=== PATIENT | female | born 1960 | race Caucasian/White ===

== ENCOUNTER 2017-01-02 07:16 | Observation (INO) ==
[2017-01-02 10:46] LABS: Hematocrit 40.3 % (35.3-44.9); Hemoglobin 13.6 g/dL (11.5-15.4); Immature Granulocytes % 0.3 % (0-4); Mean Corpuscular HGB Conc 33.7 g/dL (31.6-35.5); Mean Corpuscular Volume 88.8 fL (83.0-100.0); Mean Platelet Volume 10.2 fL (9.4-12.4); Monocytes % 5.9 %; Platelet Count 235 K/mcL (140-400); Red Blood Count 4.54 M/mcL (3.82-4.97); Red Cell Distribution Width 12.1 % (11.5-14.5); Segmented Neutrophils % 68.7 %
[2017-01-02 10:47] LABS: Basophils # 0.1 K/mcL (0.0-0.2); Basophils % 0.7 %; Eosinophils # 0.2 K/mcL (0.0-0.6); Eosinophils % 2.4 %; Monocytes # 0.5 K/mcL (0.0-1.3); Neutrophils # 6.3 K/mcL (1.6-8.9)
[2017-01-02 10:51] LABS: INR 0.9
[2017-01-02 10:54] LABS: Activated Partial Thrombo Time 24.6 Seconds (26.0-36.0)
[2017-01-02] MEDS ORDERED: Naloxone 0.4 MG/ML INJ IVP PRN (10:54)
[2017-01-02 10:58] LABS: Calcium 10.4 mg/dL (8.6-10.8); Potassium 4.7 mEq/L (3.5-4.5)
--- NOTE | 2017-01-02 11:05 | History & Physical Report ---
Date of Encounter: 01/02/17 Time of Encounter: 10:30 24 Hour HP Update - Instructions Instructions: If the History and Physical is less than 30 days old and was completed prior to A.M. admission and or procedure and has NOT been updated on calendar day of procedure please complete this update prior to performing procedure. - Update Patient reports changes in Medical Condition: No Changes in examination, assessment, or condition: No Changes in Medication: No Preop tests/diagnostics Reviewed: No Surgery Remains Indicated: Yes Consent for Planned Operative Procedure(s) Verified: No - Attending Attestation Patient presents today for hydration prior to LHC scheduled for 01/03/17 due to history of CKD-3. For full H&P, please see clinic note (eCW) by Dr. Cook on . Plan for LHC due to abnormal stress test and symptoms concerning for UA. Recent TTE shows preserved LVEF. NPO after MN except medications tonight. Plan for LHC in AM. Consulted Nephrology as requested, appreciate recommendations. Patient started Mucomyst 600 mg BID; took first dose this AM--was given Rx by Dr. Guillen. Will resume home mediations, obtain baseline labs. Further recommendations to follow. The patient was discussed and reviewed with Dr. Arnold Woody who agrees with plan as stated above.
--- NOTE | 2017-01-02 11:39 | Event Note ---
Date of Encounter: 01/02/17 Time of Encounter: 11:37 Nephrology Chart Review Nephrology consulted for CKD stage III with upcoming [facility]. Pt's eGFR near her baseline of 30-40s. Agree with gentle IVF and NAC. Full consult to follow tomorrow. Thank you.
[2017-01-02] MEDS: 0.9 % Sodium Chloride 1,000 ML IVC SCH (12:13)
[2017-01-02] MEDS: Gabapentin 300 MG CAPSULE PO SCH ×2 (15:45→21:47)
[2017-01-02] MEDS ORDERED: *HR* Acetylcysteine 20% 600 MG/3 ML ORAL SYRINGE PO SCH (21:00)
[2017-01-02] MEDS: ACETYLCYSTEINE 600 MG PO SCH (21:46)
[2017-01-03] MEDS: 0.9 % Sodium Chloride 1,000 ML IVC SCH ×2 (02:52→17:13)
[2017-01-03 04:50] LABS: Calcium 9.2 mg/dL (8.6-10.8); Potassium 4.2 mEq/L (3.5-4.5)
[2017-01-03] MEDS: FLUoxetine HCl 10 MG CAPSULE PO SCH (08:04)
[2017-01-03] MEDS: Gabapentin 300 MG CAPSULE PO SCH ×3 (08:04→21:34)
[2017-01-03] MEDS: Aspirin 81 MG TAB.CHEW PO SCH (08:05)
[2017-01-03] MEDS: ACETYLCYSTEINE 600 MG PO SCH ×2 (08:05→21:35)
--- NOTE | 2017-01-03 09:59 | Nephrology Consult Note ---
Date of Encounter: 01/03/17 Time of Encounter: 09:59 Assessment and Plan (1) CKD (chronic kidney disease) stage 3, GFR 30-59 ml/min Current Visit: Yes Status: Acute LHC planned for today Renal protective strategies in place-Mucomyst given and IV fluids running Will monitor renal function closely (2) Hypertension Current Visit: Yes Status: Acute per primary team Qualifiers: Hypertension type: unspecified Qualified Code(s): I10 - Essential (primary ) hypertension History of Present Illness - Reason for Consult Consult date: 01/03/17 - Chief Complaint abnormal stress test, LHC, CKD stage 3 - History of Present Illness Ms Mujica is a 56 year old female with a PMH of HTN, diabetes, CDK stage 3 who was admitted for a left heart cath. Patient follows with Dr Guillen for her CKD stage 3. Nephrology has been consulted to help with preserving kidney function during heart cath. IV fluids and acetylcysteine has been ordered. Heart cath is scheduled for today. Past Med Surg Social Fam HX - Past Medical History Medical history: diabetes, hyperlipidemia, hypertension, pulmonary embolus, renal disease Psychiatric history: anxiety - Social History Smoking Status: Never smoker Smokeless Tobacco Status: No Alcohol use: occasionally Drug use: none - Family History Mother Hx Family Cardiac Disorders: No Hx Family Respiratory Disorders: No Hx Family Cancer: No Hx Family GI Disorders: No Hx Family Genitourinary Disorders: No Hx Family Endocrine Disorder: Yes (thyroid) Hx Family Musculoskeletal Disorders: No Hx Family Neuromuscular Disorders: No Hx Family Neurologic Disorders: No Hx Family HEENT Disorders: No Hx Family Autoimmune Disorders: No Hx Family Reproductive Disorders: No Hx Family Psychosocial Disorders: No Hx Family Medical Disorders: No Father Living Status: Still Living Hx Family Cardiac Disorders: Yes (HLD) Hx Family Respiratory Disorders: No Hx Family Cancer: No Hx Family GI Disorders: No Hx Family Genitourinary Disorders: No Hx Family Endocrine Disorder: Yes (DM 2) Hx Family Musculoskeletal Disorders: No Hx Family Neuromuscular Disorders: No Hx Family Neurologic Disorders: No Hx Family HEENT Disorders: No Hx Family Autoimmune Disorders: No Hx Family Reproductive Disorders: No Hx Family Psychosocial Disorders: No Hx Family Medical Disorders: No Medications and Allergies Aspirin 325 mg PO DAILY 01/02/17 [History] Calcitriol [Rocaltrol] 0.25 mcg PO DAILY 01/02/17 [History] Cholecalciferol (D-3) [Vitamin D] 5,000 unit PO DAILY 01/02/17 [History] Gabapentin [Neurontin] 300 mg PO TID 01/02/17 [History] Insulin ASPART [NovoLOG] 0 unit SQ AD 01/02/17 [History] Isosorbide MONOnitrate (24 HR) [Imdur] 60 mg PO DAILY 01/02/17 [History] Levothyroxine Sodium [Tirosint] 75 mcg PO QAM 01/02/17 [History] Lisinopril [Zestril] 5 mg PO DAILY 01/02/17 [History] Simvastatin [Zocor] 40 mg PO HS 01/02/17 [History] 3 Allergy/AdvReac Type Severity Reaction Status Date / Time Penicillins Allergy Hives Verified 12/17/15 05:57 bacitracin AdvReac See Verified 12/17/15 05:57 Comments cephalexin [From Keflex] AdvReac Itching Verified 12/17/15 05:57 Review of Systems All Systems: reviewed and no additional remarkable complaints except as stated Constitutional: no fatigue, no lethargy Cardiovascular: no chest pain, no dyspnea Gastrointestinal: no abdominal pain Neurological: no behavioral changes Exam - Vital Signs Vital signs: Initial Vital Signs Temp Pulse Resp BP Pulse Ox 97.6 F 83 16 167/90 97 01/02/17 09:56 01/02/17 09:56 01/02/17 09:56 01/02/17 09:56 01/02/17 09:56 Vital Signs - Last 8 Hours Temp Pulse Resp BP Pulse Ox 01/03/17 08:10 96 01/03/17 07:32 97.9 F 68 16 137/82 96 01/03/17 04:07 98.4 F 72 14 124/75 94 Intake and Output 01/02/17 01/03/17 01/03/17 23:59 07:59 15:59 Intake Total 300 / 300 1000 / 1000 Output Total 900 / 900 Balance 300 / 300 100 / 100 Intake: IV Fluids 1000 / 1000 0.9 % Sodium Chloride 1, 1000 / 1000 000 ML @ 75 mls/hr IVC . [id number] JASPAL Rx#: [id number] Oral 300 / 300 Output: Urine 900 / 900 Other: Meal Dinner Percent of Meal Consumed 80% Weight 94.224 kg Blood Glucose* 122 Patient Weight 01/03/17 23:59 Weight 94.224 kg - General Appearance General appearance: well-developed, well-nourished EENT: ATNC, mucous membranes moist, hearing intact, vision intact Neck: supple Respiratory: clear Cardiology: no edema, normal S1, normal S2 Gastrointestinal: no tenderness, no guarding Integumentary: warm and dry Psychiatric: mood/affect appropriate Results - Lab Results 01/02/17 10:36 01/03/17 03:55 Most recent lab results Calcium 9.2 mg/dL (8.6-10.8) 01/03/17 03:55 Consult Discharge Plan - Plan Referrals: Ame Moreno [employer] TRA[employer] [Primary Care Provider] -
[2017-01-03] MEDS ORDERED: 0.9 % Sodium Chloride 2,000 ML ONE (14:06)
[2017-01-03] MEDS ORDERED: *HR* Midazolam HCl 2 MG/2 ML VIAL ONE (14:06)
[2017-01-03] MEDS ORDERED: Nitroglycerin 1,000 MCG/10 ML VIAL IV ONE (14:07)
[2017-01-03] MEDS ORDERED: *HR* Heparin 10,000 UNIT/10 ML VIAL ONE (14:07)
[2017-01-03] MEDS ORDERED: Heparin 1,000 UNITS/500 mL NS 500 ML ONE (14:07)
--- NOTE | 2017-01-03 14:38 | Pre-Sedation Evaluation ---
Pre-sedation evaluation - Pre-sedation checklist Date of procedure: 01/03/17 Procedure: [facility] Recent Vitals: Last Vital Signs Temp 97.3 F L 01/03/17 11:20 Pulse 67 01/03/17 11:20 Resp 16 01/03/17 11:20 BP 149/77 01/03/17 11:20 Pulse Ox 97 01/03/17 11:20 H&P (including ROS) documented in medical record: Yes Previous reaction to sedatives/anesthetics: Yes; explain in comment Dietary Status: NPO after Midnight Airway Assessment: Patient can open mouth completely, TMJ function normal Dentition: No loose teeth or bridges Possible difficult airway: No ASA Classification *see protocol: CLASS III-Severe systemic disease Plan of Care: Pt appropriate candidate for procedure/moderate/conscious sedation , Risks/benefits of procedure/sedation discussed w/ patient/family, If not NPO; Risk of intake outweiged by necessity to perform procedure
--- NOTE | 2017-01-03 15:22 | Event Note ---
Date of Encounter: 01/03/17 Time of Encounter: 15:20 - Cardiology Event Note Per discussion with Dr. Cook, CT Surgery consult placed for severe 3 vessel CAD , had echo 12/28/16-- mild MR, EF 60%. Dr. Duarte notified.
[2017-01-03] MEDS ORDERED: 0.9 % Sodium Chloride 1,000 ML IVC SCH (15:30)
--- NOTE | 2017-01-03 15:37 | Invasive Diagnostic Lab Proc ---
Name: Tonia Mujica Date of Study: 01/03/2017 Date: 1960 Ht: 62.9in Medical Record#: [id number] Age: 56 Wt: 207.68lb Gender: Female BSA: 1.96 Order #: [id number] BMI: 36.89 Physicians Procedure Physician: Hugh Cook DO Referring MD: Referring MD: Staff Name Position Time In Anh King RN Monitor 02:22 PM June Silveira RN Packaging Materials Inspector 02:22 PM Pallavi Kay RT (R) 02:22 PM Suzette Paris RT Scrub 02:23 PM Jarrett Chowdary RT (R) 02:23 PM Indications Indication Abnormal Test - Stress Procedures Performed Procedure L HRT ARTERY/VENTRICLE ANGIO Pre-Procedure Checklist Informed consent is complete signed and on chart. H&P is on chart. ID band is on and ID verified with patient. Patient NPO for procedure The procedure was described for the patient and questions were answered. Blood Pressure: 137/82 ECG is on chart. Plan of Care Patient will tolerate the procedure without complications. Adequate level of comfort will be maintained. Hemodynamics will remain stable Patient will recover from procedure without complications. Respiratory function will be maintained. Cardiac rhythm will remain stable. Patient temperature will be maintained. Patient and/or family have verbalized understanding of the procedure. Patient Education Chief Complaint/Reason for Test: Cardiac Cath Developmental Category: Adult (18-64 years) Developmentally Appropriate for Age: Yes Learning Barriers: None Education Needs: Procedure Education Method: Verbal Information Taught: Cardiac Cath Educational Evaluation: Able to repeat information Intravenous Access Time IV Size Location DC'd Fluid/Drip Rate Units RN 02:20 PM 20g 1 1/4" Patent On Arrival Lt Antecubital 0.9NaCl 25 ml/hr June Silveira RN Allergies bacitracin PCN (penicillin) BASATEST Penicillins cephalexin Vital Signs Time BP (mmHg) HR (bpm) O2 Sat. RR (bpm) LOC 02:21 PM 137 / 82 68 96 % 16 02:37 PM / % 5 = Fully awake and oriented or at pre-proc level 02:37 PM / % 4 = Oriented but drowsy 02:52 PM / % 4 = Oriented but drowsy 02:40 PM 156 / 76 74 100 % 15 02:45 PM 141 / 74 72 100 % 18 02:50 PM 149 / 73 70 100 % 16 02:55 PM 147 / 80 69 100 % 16 03:00 PM 155 / 73 68 100 % 16 03:05 PM 147 / 76 74 100 % 17 03:10 PM 156 / 81 77 100 % 26 Procedural Medications Time Medication Dose Units Method Given By 02:37 PM Oxygen 2 L/min nasal cannula June Silveira RN 02:42 PM Versed 2 mg Intravenous June Silveira RN 02:56 PM Lidocaine 2% 10 ml Subcutaneous Hugh Cook DO ASA Classification: CLASS III- Severe systemic disease (i.e. prior AMI, diabetes with vascular complications, morbid obesity) Duane Score Preprocedure Postprocedure Activity 2- Moves 4 extremities sustained head lift Activity 2- Moves 4 extremities sustained head lift Circulation 2- SBP +/= 20 points of pre-anesthetic level Circulation 2- SBP +/= 20 points of pre-anesthetic level Consciousness 2- Awake and alert oriented x 3 Consciousness 2- Awake and alert oriented x 3 O2 Saturation 2- Able to maintain O2 satruation of 92% on room air O2 Saturation 2- Able to maintain O2 satruation of 92% on room air Respiratory 2- Able to deep breathe and cough well Respiratory 2- Able to deep breathe and cough well Total Score 10 Total Score 10 Contrast Agent: Isovue Diagnostic Contrast: 75 ml Total Contrast: 75 ml Fluoro Dose: 342 mGy Procedure Log Time Note Enter By 02:10 PM CathStat 02:22 PM Pt arrived to laborer carpentry dock 2 at 14:22 [facility] 02:22 PM Anh King RN Position: Monitor Time in: 14:22 [email or web address] 02:22 PM June Silveira RN Position: Packaging Materials Inspector Time in: 14:22 [email or web address] 02:22 PM Pallavi Kay RT (R) Position: Time in: 14:22 lparsley 02:23 PM Suzette Paris RT Position: Scrub Time in: 14:23 [email or web address] 02:23 PM Jarrett Chowdary RT (R) Position: Time in: 14:23 lparsley 02:34 PM Physician arrived 14:34 [email or web address] 02:34 PM Nigel and shayla [facility] 02:34 PM Sign in performed according to hospital policy. [facility] 02:34 PM Procedure start 14:34 [facility] 02:34 PM Patient charges- Angio tray pack, Navilyst 3mm J, Pulse Oximetry and ACIST tubing and transducer [facility] 02:34 PM Case Delayed No [facility] :37 PM Time: 14:37 Oxygen on at 2 L/min per nasal cannula by June Silveira RN [facility] 02:37 PM Time: 14:37 Patient comfortable and pain free: Yes [facility] :37 PM Time: 14:37LOC: 5 = Fully awake and oriented or at pre-proc level [facility] 02:37 PM Clinical Presentation: Unstable angina [facility] 02:39 PM Recorded ECG: HR=87 Condition=Condition 1 02:39 PM Vitals capture started with the following parameters, Patient=Adult, Interval=5 min, Initial Vineirqe=424 mmHg, Deflation Rate=5 mmHg, Cuff placed on Right Arm 02:40 PM HR=74 bpm, PLIA=829/76 mmhg, VwN4=069.0 %, Resp=15 B/min, Comment=NSR 02:41 PM insulin pump removed and placed at station [facility] 02:42 PM Time: 14:42 Versed 2 mg Intravenous Given by June Silveira RN [facility] 02:43 PM ASA Class CLASS III- Severe systemic disease (i.e. prior AMI, diabetes with vascular complications, morbid obesity) [facility] 02:45 PM HR=72 bpm, SRRF=209/74 mmhg, HnX0=709.0 %, Resp=18 B/min, Comment=NSR 02:48 PM Pressure channel 2 zeroed. 02:50 PM HR=70 bpm, DJVB=842/73 mmhg, SpH1=611.0 %, Resp=16 B/min, Comment=NSR 02:52 PM Time: 14:37LOC: 4 = Oriented but drowsy [facility] 02:52 PM Time: 14:37 Patient comfortable and pain free: Yes [facility] 02:55 PM HR=69 bpm, JBPE=728/80 mmhg, NvH2=139.0 %, Resp=16 B/min, Comment=NSR 02:55 PM Time out performed according to hospital policy [facility] 02:56 PM Time: 14:56 10 ml Lidocaine 2% to right groin Subcutaneous Given by Hugh Cook DO [facility] 02:59 PM Micro-Introducer Kit utilized for sheath placement lparsley 02:59 PM Access obtained by percutaneous puncture. 6Fr 10cm Terumo [place] sheath placed in right Femoral artery. [id number] lparsley 03:00 PM HR=68 bpm, JCYN=184/73 mmhg, ZvJ8=140.0 %, Resp=16 B/min, Comment=NSR 03:01 PM 6Fr FR 4 catheter inserted over the wire DN lparsley 03:01 PM 0.035 145cm Navilyst 3mmJ wire [id number] lparsley 03:01 PM Catheter selectively placed in left ventricle lparsley 03:01 PM Bolus angiogram of left Ventricle complete: hand injected lparsley 03:01 PM Recorded Pressure: LV, HR=70, Condition=Condition 1 (Left Ventricle) LV 151/4/11 03:02 PM Recorded Pressure: LV, Ao, HR=72, Condition=Condition 1 (Left Ventricle) LV 153/6/12, (Aorta) Ao 145/66/99 03:03 PM RCA angiography performed in multiple views. lparsley 03:03 PM Recorded Pressure: Ao, HR=74, Condition=Condition 1 (Aorta) Ao 146/66/98 03:04 PM Lesion found in Mid RCA. Pre Stenosis: 80 Pre TATIANA Flow: 3: Complete and Brisk Flow/Perfusion lparsley 03:05 PM HR=74 bpm, ARKL=972/76 mmhg, TgW2=499.0 %, Resp=17 B/min, Comment=NSR 03:05 PM Lesion found in Distal RCA. Pre Stenosis: 90 Pre TATIANA Flow: 3: Complete and Brisk Flow/Perfusion lparsley 03:05 PM Catheter removed lparsley 03:05 PM 5Fr FL 4 catheter inserted over the wire [facility] lparsley 03:05 PM LCA angiography performed in multiple views. lparsley 03:05 PM Recorded Pressure: Ao, HR=76, Condition=Condition 1 (Aorta) Ao 145/62/95 03:06 PM Coronary Dominance: right lparsley 03:07 PM Bolus angiogram of right Femoral complete: hand injected lparsley 03:07 PM Time: 14:52LOC: 4 = Oriented but drowsy lparsley 03:08 PM Catheter removed lparsley 03:08 PM Procedure completed at 15:08 lparsley 03:09 PM Sign out completed: Radiation Dose 341.87 mGy Fluoro Time: 2.5 Isovue 370 - 200ml contrast 75 ml given by Hugh Cook DO. Complications: NoneCardiac Rehab Consult needed: YesConfirmed administered medications: Yes lparsley 03:09 PM Isovue 370 - 200ml,1 Bottle(s) used. lparsley 03:09 PM Arterial sheath pulled, Angio-seal Evolution closure device used and was Successful [id number] S/N. lparsley 03:09 PM Post ECG NSR lparsley 03:10 PM HR=77 bpm, LUBN=363/81 mmhg, GkI9=202.0 %, Resp=26 B/min, Comment=NSR 03:10 PM Post Blood Pressure 145/62 lparsley 03:16 PM 15:16 Post Pulses Bilateral DP & PT 2+ lparsley 03:16 PM Information taught Cardiac Cath and Angioseal lparsley 03:17 PM Education needs Procedure, Plan of Care, and Safe & Effective Use of Medications lparsley 03:17 PM Learning barriers :None lparsley 03:17 PM Education Methods Verbal lparsley 03:17 PM Education evaluation Able to repeat information lparsley 03:17 PM Site status No bleeding/hematoma - Rt Groin as reported by Suzette Paris RT at 15:17 lparsley 03:17 PM Opsite applied lparsley 03:18 PM Plavix, Effient or Brilinta given No lparsley 03:18 PM Delay to floor No lparsley 03:18 PM Patient out of room: 15:18 lparsley 03:18 PM Family placed in consult room. lparsley 03:18 PM Complications: None lparsley 03:18 PM Fluoro Time: 2.5 lparsley 03:18 PM Isovue 370 - 200ml contrast 75 ml given by Hugh Cook DO. lparsley 03:18 PM Radiation Dose 341.87 mGy lparsley 03:19 PM Lesion found in Mid LAD. Pre Stenosis: 80 Pre TATIANA Flow: 3: Complete and Brisk Flow/Perfusion lparsley 03:19 PM Lesion found in 1st Diagonal. Pre Stenosis: 80 Pre TATIANA Flow: 3: Complete and Brisk Flow/Perfusion lparsley 03:19 PM Lesion found in Proximal Circumflex. Pre Stenosis: 80 Pre TATIANA Flow: 3: Complete and Brisk Flow/Perfusion lparsley 03:20 PM Lesion found in 1st Marginal. Pre Stenosis: 90 Pre TATIANA Flow: 3: Complete and Brisk Flow/Perfusion lparsley 03:21 PM Right Coronary, Right Posterior Descending Arteries with Right Posterolateral and Acute Marginal branches with 90 % stenosis. lparsley 03:21 PM Mid/Distal Left Anterior Descending Coronary Artery and diagonal branches with 90% stenosis. lparsley 03:21 PM Circumflex, Obtuse Marginal, Left Posterior Descending, and Left Posterolateral Coronary Arteries with 90 % stenosis. lparsley 03:[address] Duarte and he returned call and made aware of consult [facility] Complications Complication None Hemodynamics Pressures Site Systolic/A Wave Diastolic/V Wave Mean LV 151 4 11 LV 153 6 12 AO 145 66 99 AO 146 66 98 AO 145 62 95 Post Procedure Information Blood Pressure: 145/62 mmHg Rhythm: NSR Post procedural instructions were given Closure Device Time Device Success/Fail 01/03/2017 3:22:00 PM angioseal Successful Site Checks Time Location Status Staff Sheath In? Note 03:17 PM Rt Groin No bleeding/hematoma Suzette Paris RT Pulses Time Site Pre-Procedure Post-Procedure Note 01/03/2017 2:21:00 PM Bilateral radial 2+ 01/03/2017 2:21:00 PM Bilateral DP & PT 1+ 3:16:00 PM Bilateral DP & PT 2+ Updated by Anh King RN on 01/03/2017 3:29:03 PM electronically signed on 01/03/2017 3:32:07 PM with status of Final
--- NOTE | 2017-01-03 16:21 | Cardiothoracic Consult Note ---
Date of Encounter: 01/03/17 Time of Encounter: 16:17 Assessment and Plan (1) Hypertension Current Visit: Yes Status: Acute The assessment and plan as outlined above was discussed with the patient and/or family members who expressed understanding and agreement. All questions were answered. The patient has small, diffusely diseased vessels with triple-vessel disease. They do appear bypassable. Coronary artery bypass grafting was discussed with the patient. She wishes to consider. We will make sure that her renal function is stable. I will check a carotid duplex to make sure that her carotid arteries are not blocked. Risks of open heart surgery include , infection, stroke, bleeding, myocardial infarction, clots around the heart, renal or respiratory failure, acute or chronic graft closure, phrenic nerve injury and sternal dehiscence. She will consider and let us know her decision. Qualifiers: Hypertension type: unspecified Qualified Code(s): I10 - Essential (primary ) hypertension - History of Present Illness History of present illness: Ms. Mujica is a 56 year old female History of present illness. The patient is a 56-year-old female who presented with angina with exertion. No history of myocardial infarction or shortness of breath. She did have a positive stress test. Echocardiogram revealed mild mitral regurgitation, but no other significant valvular disease. Cardiac catheterization done today revealed triple vessel disease. The vessels are small , but the posterior descending branch of the right, obtuse marginal branch of the circumflex and LAD appear bypassable. Past medical history is notable for diabetes since age 12. She does have an insulin pump, but states that her sugars tend to bounce around. She also has hypertension and hypercholesterolemia. She does have chronic kidney disease and is followed by the renal service for this. She did have some eye problems and has had laser surgery. 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 Approximately 10 years ago she had a right leg deep venous thrombosis that resulted in a pulmonary embolism which was felt to be secondary to control pills. Her only blood thinner present is aspirin. She is also undergone partial thyroidectomy. Family history is positive for coronary artery disease. Social history. She lives with her parents and works at [employer]. Does not smoke. Occasionally drinks alcohol. Review of systems is negative for saphenous vein varicosities or strippings. No history of stroke or TIA. Past Med Surg Social Fam HX - Past Medical History Medical history: diabetes, hyperlipidemia, hypertension, pulmonary embolus, renal disease Psychiatric history: anxiety - Social History Smoking Status: Never smoker Smokeless Tobacco Status: No Alcohol use: occasionally Drug use: none - Family History Mother Hx Family Cardiac Disorders: No Hx Family Respiratory Disorders: No Hx Family Cancer: No Hx Family GI Disorders: No Hx Family Genitourinary Disorders: No Hx Family Endocrine Disorder: Yes (thyroid) Hx Family Musculoskeletal Disorders: No Hx Family Neuromuscular Disorders: No Hx Family Neurologic Disorders: No Hx Family HEENT Disorders: No Hx Family Autoimmune Disorders: No Hx Family Reproductive Disorders: No Hx Family Psychosocial Disorders: No Hx Family Medical Disorders: No Father Living Status: Still Living Hx Family Cardiac Disorders: Yes (HLD) Hx Family Respiratory Disorders: No Hx Family Cancer: No Hx Family GI Disorders: No Hx Family Genitourinary Disorders: No Hx Family Endocrine Disorder: Yes (DM 2) Hx Family Musculoskeletal Disorders: No Hx Family Neuromuscular Disorders: No Hx Family Neurologic Disorders: No Hx Family HEENT Disorders: No Hx Family Autoimmune Disorders: No Hx Family Reproductive Disorders: No Hx Family Psychosocial Disorders: No Hx Family Medical Disorders: No Medications and Allergies Aspirin 325 mg PO DAILY 01/02/17 [History] Calcitriol [Rocaltrol] 0.25 mcg PO DAILY 01/02/17 [History] Cholecalciferol (D-3) [Vitamin D] 5,000 unit PO DAILY 01/02/17 [History] Gabapentin [Neurontin] 300 mg PO TID 01/02/17 [History] Insulin ASPART [NovoLOG] 0 unit SQ AD 01/02/17 [History] Isosorbide MONOnitrate (24 HR) [Imdur] 60 mg PO DAILY 01/02/17 [History] Levothyroxine Sodium [Tirosint] 75 mcg PO QAM 01/02/17 [History] Lisinopril [Zestril] 5 mg PO DAILY 01/02/17 [History] Simvastatin [Zocor] 40 mg PO HS 01/02/17 [History] 3 Allergy/AdvReac Type Severity Reaction Status Date / Time Penicillins Allergy Hives Verified 12/17/15 05:57 bacitracin AdvReac See Verified 12/17/15 05:57 Comments cephalexin [From Keflex] AdvReac Itching Verified 12/17/15 05:57 All Systems Review: A 10-system review of systems was performed and is negative for pertinent findings except as documented above in the HPI. Physical Examination Vital Signs, Last 4 Hours Temp Pulse Resp BP Pulse Ox 01/03/17 15:42 97.6 F 67 14 144/81 96 She has decreased vision in her left eye. No oral lesions. Neck is supple. Trachea in the midline. She is status post partial thyroidectomy. No carotid bruits. Lungs are clear to percussion and auscultation. Heart is in a regular rate and rhythm. No murmurs, gallops or rubs. Abdomen is benign. No tenderness, rebound or guarding. Extremities without edema. 1+ pulses. No saphenous vein varicosities or strippings. Cranial nerves, motor and sensory intact. Results 01/02/17 10:36 01/03/17 03:55 Lab Results, Last 24 hours 01/03/17 03:55 Sodium 138 Potassium 4.2 Chloride 106 Carbon Dioxide 24 BUN 26 H Creatinine 1.24 H Glucose 165 H Calcium 9.2 Consult Discharge Plan - Plan Referrals: Ame Moreno CNP [Primary Care Provider] -
[2017-01-04 02:04] LABS: Hematocrit 41.7 % (35.3-44.9); Hemoglobin 13.5 g/dL (11.5-15.4); Immature Granulocytes % 0.3 % (0-4); Lymphocytes % 23.1 %; Mean Corpuscular HGB Conc 32.4 g/dL (31.6-35.5); Mean Corpuscular Hemoglobin 29.2 pg (28.0-33.3); Mean Corpuscular Volume 90.1 fL (83.0-100.0); Mean Platelet Volume 10.4 fL (9.4-12.4); Platelet Count 242 K/mcL (140-400); Red Blood Count 4.63 M/mcL (3.82-4.97); Red Cell Distribution Width 12.3 % (11.5-14.5); Segmented Neutrophils % 67.9 %
[2017-01-04 02:05] LABS: Basophils # 0.1 K/mcL (0.0-0.2); Basophils % 0.5 %; Eosinophils # 0.2 K/mcL (0.0-0.6); Eosinophils % 2.3 %; Lymphocytes # 2.2 K/mcL (0.6-4.6); Monocytes # 0.6 K/mcL (0.0-1.3); Monocytes % 5.9 %; Neutrophils # 6.5 K/mcL (1.6-8.9)
[2017-01-04 02:22] LABS: Calcium 9.4 mg/dL (8.6-10.8)
[2017-01-04] MEDS: 0.9 % Sodium Chloride 1,000 ML IVC SCH (04:28)
--- NOTE | 2017-01-04 09:06 | Cardiothoracic Progress Note ---
Date of Encounter: 01/04/17 Time of Encounter: 09:01 - Assessment and plan (1) Hypertension Current Visit: Yes Status: Acute The patient's renal function is improved. Carotid duplex study is pending. She is still unsure about surgery. All her questions were answered. She states that she probably wants to go home and come back for surgery. This is okay from my standpoint. She has triple vessel disease with recently preserved left ventricular function and only gets angina with exertion. The patient has several social issues. She states that her mother's recently had back surgery and that her father is quite ill. In addition, her sister is going out of town for a vacation. I did discuss the fact that she would have a slight risk of heart attack or sudden if she goes home. If she does go home, we can schedule the open heart surgery prior to her leaving for a date of her choosing. Otherwise, she has the phone number of our office and she can call us when she is ready or can make an appointment in the office to discuss further. Qualifiers: Hypertension type: unspecified Qualified Code(s): I10 - Essential (primary ) hypertension - Subjective Interval history: The patient has had no chest pain and no angina. She has no complaints. Vital Signs, Last 4 Hours Temp Pulse Resp BP Pulse Ox 01/04/17 07:50 97.4 F L 60 16 126/54 98 Weight 01/02/17 01/03/17 01/04/17 23:59 23:59 23:59 Weight 95.708 kg 94.224 kg 95.479 kg Lungs are clear to percussion and auscultation. Heart is in a normal sinus rhythm. - Labs 01/04/17 01:20 01/04/17 01:20 Lab Results, Last 24 hours 01/04/17 01/04/17 01/04/17 01:20 01:20 01:20 WBC 9.5 Hgb 13.5 Hct 41.7 Plt Count 242 Sodium 138 Potassium 4.0 Chloride 106 Carbon Dioxide 27 BUN 19 Creatinine 1.18 H Glucose 168 H Calcium 9.4 B-Natriuretic Peptide 108 H Consult Discharge Plan - Plan Referrals: Ame Moreno CNP [Primary Care Provider] -
[2017-01-04] MEDS: ACETYLCYSTEINE 600 MG PO SCH (09:12)
[2017-01-04] MEDS: Aspirin 81 MG TAB.CHEW PO SCH (09:12)
[2017-01-04] MEDS: FLUoxetine HCl 10 MG CAPSULE PO SCH (09:12)
[2017-01-04] MEDS: Gabapentin 300 MG CAPSULE PO SCH (09:12)
--- NOTE | 2017-01-04 10:39 | Nephrology Progress Note ---
Date of Encounter: 01/04/17 Time of Encounter: 10:37 - Assessment and Plan (1) CKD (chronic kidney disease) stage 3, GFR 30-59 ml/min Status: Chronic Doing very well from a renal perspective in CKD stage III and slightly improved d/t the gentle IVF. Would check BMP about 72hr after contrast exposure. Follow up with her primary plate cleaner, Dr. Nunez. Found to have 3v coronary disease and now seeing Cardiothoracic surgery. Given the well controlled CKD stage III, it would be reasonable from a nephrology perspective for her to undergo CABG if indicated. Will be available if needed. Thank you. (2) Hypertension Status: Chronic Qualifiers: Hypertension type: essential hypertension Qualified Code(s): I10 - Essential (primary) hypertension Subjective Principal diagnosis: CKD s/p [facility] Interval history: Pt was s/e and did not affirm N/V/D or uremic symptoms. She and her mother asked me my opinion about CABG and it's impact on CKD: I reported that since her eGFR is actually quite good at this time, that it's prudent that she proceed soon with a CABG here at [place]. She said she plans to delay surgery until her Mom returns from a pre-planned vacation. Objective - Vital Signs Vital signs: Vital Signs Temp Pulse Resp BP Pulse Ox 01/04/17 07:50 97.4 F L 60 16 126/54 98 01/04/17 03:55 97.6 F 58 14 104/64 98 01/03/17 23:30 97.6 F 70 16 109/69 97 01/03/17 17:40 72 17 150/93 97 01/03/17 16:40 75 18 159/75 98 01/03/17 16:10 68 17 151/82 96 01/03/17 15:42 97.6 F 67 14 144/81 96 01/03/17 11:20 97.3 F L 67 16 149/77 97 Intake and Output 01/03/17 01/04/17 01/04/17 23:59 07:59 15:59 Intake Total 1000 / 1000 360 / 360 Output Total 1400 / 1400 Balance -400 / -400 360 / 360 Intake: IV Fluids 1000 / 1000 0.9 % Sodium Chloride 1, 1000 / 1000 000 ML @ 75 mls/hr IVC . [id number] JASPAL Rx#: [id number] Oral 360 / 360 Output: Urine 1400 / 1400 Other: Meal Dinner Breakfast Percent of Meal Consumed 0% 100% Weight 95.479 kg Blood Glucose* 198 78 Patient Weight 01/04/17 23:59 Weight 95.479 kg - General Appearance General appearance: Present: well-developed, well-nourished, appears started age , obese EENT: Present: ATNC, PERRL, mucous membranes moist Neck: Present: supple Respiratory: Present: clear Cardiology: Present: no edema, regular rate, regular rhythm, normal S1, normal S2 Gastrointestinal: Present: normoactive bowel sounds, no tenderness Integumentary: Present: no rash, warm and dry Neurologic: Present: no focal deficit, no asterixis, alert and oriented x3 Musculoskeletal: Present: no deformities, no erythema, no cyanosis Psychiatric: Present: mood/affect appropriate, cooperative - Lab 01/04/17 01:20 01/04/17 01:20 Most recent lab results Calcium 9.4 mg/dL (8.6-10.8) 01/04/17 01:20 Consult Discharge Plan - Plan Instructions: Chronic Kidney Disease (DC), Chronic Hypertension (DC) Additional Instructions: RISK FACTORS: STOP SMOKING: If you smoke, STOP. Smoking or tobacco use significantly increases your risk of heart disease because nicotine causes the arteries to narrow or constrict. It also causes fats to stick to the artery. Your chances of having a heart attack are greatly increased if you continue to smoke. For more information, call the education line for smoking cessation 1-817-GWGFMHK EAT A LOW FAT/CHOLESTEROL/SODIUM DIET: This diet may help reduce your chances of having a heart attack. LIFTING: Avoid lifting anything more than 10 pounds for 5-7 days Prior to straining, laughing, sneezing and/or coughing, apply manual pressure directly over insertion site. ACTIVITY: Avoid strenuous activity or exertion until seen by Dr. Roderick Danielle BATHING Do not submerge the site into water (bath tub, hot tub, swimming pool) for 1 week. This can be a sourc for infection into the blood stream. You may shower after 24 hours SITE CARE: After 24 hours, you may remove the dressing and leave the site open to air. Keep the site clean and dry. Clean gently and pat dry. You can expect bruising and tenderness that gradually resolve within a week or two. Return to work as instructed per your physician Resume driving as instructed per physician Keep all scheduled follow up appointments Resume medications as instructed IMPORTANT: If prescribed a Platelet Aggregation Inhibitor such as, Plavix, Brilinta or Effient: Duration of therapy is minimum one year These medications are often used in combination with Aspirin in prevention of future heart attacks Never discontinue unless consult with your Brim Curler STROKE (CVA) Risk factors for a stroke are: Age, cigarette smoking, diabetes, excessive alcohol consumption, family history, high blood pressure, overweight, physical inactivity, prior stroke, heart attack, diagnosis of carotid artery stenosis or other artery disease. Warning signs: Sudden numbness or weakness of the face, arm or leg; especially on one side of the body, sudden confusion, trouble speaking or understanding, sudden trouble seeing in one or both eyes, sudden trouble walking, dizziness, loss of balance or coordination, sudden severe headache with no cause. Call 911 or go to the Emergency Room. CONGESTIVE HEART FAILURE: If you have been diagnosed with Congestive Heart Failure (CHF) and your symptoms return, make an appointment with your physician Weigh yourself daily. Notify your physician if you have a weight gain of two or more pounds in one day or five or more pounds in one week. If you experience any difficulty breathing, please call 911 BLEEDING: Although the risk of bleeding is minimal, it can happen. If you have any bleeding from the site, apply firm pressure above the puncture site for 10-15 minutes. If the bleeding does not stop, continue manual pressure and call 911 Contact your physician if: You develop a fever greater than 101 degrees Fahrenheit Your site becomes reddened or has any drainage You have an increase in pain or burning at the site or if a large knot forms at the site. If you experience chest pain, shortness of breath, dizziness, or extreme tiredness, stop the activity and rest. Please notify your physicians office if you experience any of these symptoms and they are not relieved by rest please call 911! Referrals: Jaime Danielle MD [Partnered Physician] - Ame Moreno CNP [Primary Care Provider] - Prescriptions: Metoprolol [Lopressor] 12.5 mg PO BID #60 tab
[2017-01-04 10:51] VITALS: BP 146/80
[2017-01-04] MEDS ORDERED: Nitroglycerin 0.4 MG TAB.SUBL SL PRN (11:42)
--- NOTE | 2017-01-04 11:51 | Discharge Summary ---
Date of Encounter: 01/04/17 Time of Encounter: 10:00 - Discharge Diagnosis (1) Abnormal stress test Priority: Primary Status: Acute Comments: s/p C--severe 3v CAD, CT surgery recommended. Will follow CT surgery as outpatient. (2) CKD (chronic kidney disease) stage 3, GFR 30-59 ml/min Priority: Secondary Status: Chronic (3) Hypertension Priority: Secondary Status: Chronic Qualifiers: Hypertension type: essential hypertension Qualified Code(s): I10 - Essential (primary) hypertension - Discharge Medications Prescriptions: Metoprolol [Lopressor] 12.5 mg PO BID #60 tab Home Medications: Calcitriol [Rocaltrol] 0.25 mcg PO DAILY 01/02/17 [History] Cholecalciferol (D-3) [Vitamin D] 5,000 unit PO DAILY 01/02/17 [History] Gabapentin [Neurontin] 300 mg PO TID 01/02/17 [History] Insulin ASPART [NovoLOG] 0 unit SQ AD 01/02/17 [History] Isosorbide MONOnitrate (24 HR) [Imdur] 60 mg PO DAILY 01/02/17 [History] Levothyroxine Sodium [Tirosint] 75 mcg PO QAM 01/02/17 [History] Simvastatin [Zocor] 40 mg PO HS 01/02/17 [History] Aspirin 81 mg PO DAILY 01/04/17 [Rx] FLUoxetine HCl [Prozac] 10 mg PO DAILY 01/04/17 [Rx] Gabapentin [Neurontin] 300 mg PO TID 01/04/17 [Rx] Metoprolol [Lopressor] 12.5 mg PO BID #60 tab 01/04/17 [Rx] Nitroglycerin 0.4 mg SL Q5MIN PRN 01/04/17 [Rx] Patient Taking Own Medication 0 each PO BID each 01/04/17 [Rx] Allergies/Adverse Reactions: 3 Allergy/AdvReac Type Severity Reaction Status Date / Time Penicillins Allergy Hives Verified 12/17/15 05:57 bacitracin AdvReac See Verified 12/17/15 05:57 Comments cephalexin [From Keflex] AdvReac Itching Verified 12/17/15 05:57 Procedures/tests Complete & Pending: Procedures Performed prior 72 hours Category Date Time Status CL Cardiac Catheterization [CL] Routine Price Accuracy Supervisor 01/03/17 08:00 Completed EV carotid duplex imaging BI Stat Y 01/04/17 16:28 Completed Date of admission: 01/02/17 09:02 Primary care physician: Ame Moreno CNP Consults: 01/02/17 10:44 Consult to Nephrology [CONS] Routine Consulting Provider: Kidney Rebekah/BLANE/ALINA/PARAMJIT Reason for Consult: CKD-3; pre-hydration [facility] planned 01/03/17 Time Notified: 10:40 Call Completed: Yes 01/03/17 15:18 Consult to Cardiothoracic Surgery [CONS] Routine Consulting Provider: Cardiothoracic Surgery Rebekah Reason for Consult: cad, eval for CABG Call Completed: Yes Discharging clinician: Sylwia Abebe Anticipated date of discharge: 01/04/17 - Patient Status Disposition: Home, Self-Care Condition: Good Functional capacity at discharge: independent ambulation Overall status at discharge: patient is back to baseline - Discharge Instructions Follow Up With: Ame Moreno CNP [Primary Care Provider] - Jaime Danielle MD [Partnered Physician] - Additional Instructions: RISK FACTORS: STOP SMOKING: If you smoke, STOP. Smoking or tobacco use significantly increases your risk of heart disease because nicotine causes the arteries to narrow or constrict. It also causes fats to stick to the artery. Your chances of having a heart attack are greatly increased if you continue to smoke. For more information, call the education line for smoking cessation 4-644-EDSNHYA EAT A LOW FAT/CHOLESTEROL/SODIUM DIET: This diet may help reduce your chances of having a heart attack. LIFTING: Avoid lifting anything more than 10 pounds for 5-7 days Prior to straining, laughing, sneezing and/or coughing, apply manual pressure directly over insertion site. ACTIVITY: Avoid strenuous activity or exertion until seen by Dr. Roderick Danielle BATHING Do not submerge the site into water (bath tub, hot tub, swimming pool) for 1 week. This can be a sourc for infection into the blood stream. You may shower after 24 hours SITE CARE: After 24 hours, you may remove the dressing and leave the site open to air. Keep the site clean and dry. Clean gently and pat dry. You can expect bruising and tenderness that gradually resolve within a week or two. Return to work as instructed per your physician Resume driving as instructed per physician Keep all scheduled follow up appointments Resume medications as instructed IMPORTANT: If prescribed a Platelet Aggregation Inhibitor such as, Plavix, Brilinta or Effient: Duration of therapy is minimum one year These medications are often used in combination with Aspirin in prevention of future heart attacks Never discontinue unless consult with your [employer] General STROKE (CVA) Risk factors for a stroke are: Age, cigarette smoking, diabetes, excessive alcohol consumption, family history, high blood pressure, overweight, physical inactivity, prior stroke, heart attack, diagnosis of carotid artery stenosis or other artery disease. Warning signs: Sudden numbness or weakness of the face, arm or leg; especially on one side of the body, sudden confusion, trouble speaking or understanding, sudden trouble seeing in one or both eyes, sudden trouble walking, dizziness, loss of balance or coordination, sudden severe headache with no cause. Call 911 or go to the Emergency Room. CONGESTIVE HEART FAILURE: If you have been diagnosed with Congestive Heart Failure (CHF) and your symptoms return, make an appointment with your physician Weigh yourself daily. Notify your physician if you have a weight gain of two or more pounds in one day or five or more pounds in one week. If you experience any difficulty breathing, please call 911 BLEEDING: Although the risk of bleeding is minimal, it can happen. If you have any bleeding from the site, apply firm pressure above the puncture site for 10-15 minutes. If the bleeding does not stop, continue manual pressure and call 911 Contact your physician if: You develop a fever greater than 101 degrees Fahrenheit Your site becomes reddened or has any drainage You have an increase in pain or burning at the site or if a large knot forms at the site. If you experience chest pain, shortness of breath, dizziness, or extreme tiredness, stop the activity and rest. Please notify your physicians office if you experience any of these symptoms and they are not relieved by rest please call 911! - Diet and Activity Activity: other (avoid strenuous activity or exertion until seen by Dr. Danielle. ) Diet: low fat, low cholesterol, low salt diet - Hospital Course Hospital course: Ms. Mujica is a 56 year old female who presented on 01/02/17 for pre-hydration prior to LHC, indication=abnormal stress test. LHC completed on 01/03/17 and demonstrated severe 3v CAD, was recommended for CABG--see inpatient CT surgery consult. Past medical history otherwise significant for CKD-3, HTN, and DMII ( insulin pump). Patient has elected to be discharged home today and follow-up with CT surgery next week to determine surgery date and time, [facility] office staff to coordinate appt. Labs including SCr have been stable, SCr improved today from baseline s/p C. Vital signs and telemetry stable, she denies chest pain since admission. Ms. Mujica is being prepped for discharge to home in stable condition. She was instructed to avoid strenuous activity or exertion until seen by CT surgery early next week. She was instructed to stop ACEi in preparation for CABG; betablocker added to home medication. She has prn NTG tabs at home. Advised ED evaluation with prolonged or severe symptoms--she verbalized understanding of all information and agrees with plan. The patient was discussed and reviewed with Dr. Hair who agrees with plan as stated above. - Time Spent with Patient Total time spent providing and/or coordinating discharge services: 45 minutes Greater than 30 minutes Specific discharge activities: Per post angiogram (femoral approach) discharge instructions. Avoid exertion/strenuous activity until seen by Dr. Danielle Physical Examination Vital Signs, Last 4 Hours Temp Pulse Resp BP Pulse Ox 01/04/17 10:50 97.7 F 62 16 146/80 94 01/04/17 07:50 97.4 F L 60 16 126/54 98 General: Conversant, No Apparent Distress HEENT: Atraumatic, Normocephaly, Mucus Membranes Moist Neck: No JVD, Normal carotid pulses Cardiac: Reg Rate and Rhythm, Normal S1 and S2, No Murmur Lungs: Normal Breath Sounds, No Wheeze, Rales, Rhonchi Neuro: Alert and responsive, No focal deficits noted Abdomen: Soft, Non-Tender Skin: No rashes noted on visualized skin Musculoskeletal: No Chest Wall Tenderness Extremities: No Clubbing, No Cyanosis, No Edema, Normal Pulses
--- NOTE | 2017-01-04 15:47 | Carotid Imaging Report ---
Carotid Duplex Patient Name:Tonia Mujica Order Number:[id number] Procedure Date:01/04/2017 Date:1960ge:56 yrs Gender:Female Location:[facility] Room #: 3B52 Scouring Pads Supervisor:Alonso Sommer RDCS Referring MD:Oj Duarte MD hvac project engineer:Ame Moreno, STAB SETTER AND DRILLER Reading MD:Keenan Moya MD Primary Indications:Preoperative evaluation Risk Factors Yes/No Hypertension Yes Diabetes Yes Hypercholesterolemia Yes Impressions: The right internal carotid artery has a 40-59% stenosis. The left carotid artery has minimal plaque throughout. Recommendations: Risk factor reduction. Follow-up carotid duplex in 1 year. After imaging the patient returned to their room. Bilateral minimal bifurcation plaque only noted with high right distal ICA velocities which may be d/t tortuous vessels. Findings Carotid Duplex: Right: The right proximal common carotid artery has a PSV of 90 cm/s and a EDV of 20 cm/s. The right mid common carotid artery has a PSV of 86 cm/s and a EDV of 19 cm/s. The right distal common carotid artery has a PSV of 86 cm/s and a EDV of 17 cm/s. There is nonstenotic plaque in the right bifurcation with a PSV of 63 cm/s and a EDV of 11 cm/s. There is smooth, heterogeneous calcified plaque. The right proximal internal carotid artery has a PSV of 72 cm/s and a EDV of 17 cm/s. The right mid internal carotid artery has a PSV of 88 cm/s and a EDV of 29 cm/s. There is 40-59% stenosis in the right distal internal carotid artery with a PSV of 131 cm/s and a EDV of 38 cm/s. The right eca has a PSV of 98 cm/s and a EDV of 13 cm/s. The right vertebral artery has a PSV of 52 cm/s and a EDV of 12 cm/s. Left: The left proximal common carotid artery has a PSV of 117 cm/s and a EDV of 33 cm/s. The left mid common carotid artery has a PSV of 88 cm/s and a EDV of 28 cm/s. The left distal common carotid artery has a PSV of 105 cm/s and a EDV of 29 cm/s. There is nonstenotic plaque in the left bifurcation with a PSV of 74 cm/s and a EDV of 20 cm/s. There is smooth calcified plaque. The left proximal internal carotid artery has a PSV of 72 cm/s and a EDV of 21 cm/s. The left mid internal carotid artery has a PSV of 98 cm/s and a EDV of 31 cm/s. The left distal internal carotid artery has a PSV of 104 cm/s and a EDV of 36 cm/s. The left eca has a PSV of 102 cm/s and a EDV of 13 cm/s. The left vertebral artery has a PSV of 65 cm/s and a EDV of 18 cm/s. Prior Study: No prior study available for comparison. Carotid Results Right PSV EDV Assessment Proximal CCA 90 20 Normal Mid CCA 86 19 Normal Distal CCA 86 17 Normal Bifurcation 63 11 Non Stenotic Plaque Proximal ICA 72 17 Normal Mid ICA 88 29 Normal Distal ICA 131 38 40-59% stenosis ECA 98 13 Nnmal Vertebral Artery 52 12 Normal Left PSV EDV Assessment Proximal CCA 117 33 Normal Mid CCA 88 28 Normal Distal CCA 105 29 Normal Bifurcation 74 20 Non Stenotic Plaque Proximal ICA 72 21 Normal Mid ICA 98 31 Normal Distal ICA 104 36 Normal ECA 102 13 Normal Vertebral Artery 65 18 Normal Ratio's Right ICA/CCA Ratio: 1.52 ICA/CCA Values: 131/86 Left ICA/CCA Ratio: 1.18 ICA/CCA Values: 104/88 Updated by Keenan Moya MD on 01/04/2017 3:41:51 PM electronically signed on 01/04/2017 3:42:27 PM with status of Final
[2017-01-05] MEDS ORDERED: Isosorbide MONOnitrate (24 HR) 30 MG TAB.ER.24H PO SCH (09:00)
== END 2017-01-04 13:40 | disposition home or self-care (01) ==
LOC: 3BNU
PROVIDERS: ADMIT Internal Medicine Cardiovascular Disease; ATTEND Internal Medicine Cardiovascular Disease

== ENCOUNTER 2017-01-11 07:02 | Inpatient (IN) ==
[2017-01-11] MEDS ORDERED: *HR* Midazolam HCl 5 MG/5 ML VIAL IVP ONE (07:11)
[2017-01-11] MEDS ORDERED: *HR* FentaNYL (PF) 1,000 MCG/20 ML VIAL ONE (07:11)
[2017-01-11] MEDS ORDERED: Nitroglycerin 25 MG/250 ML INFUS..BTL IVC ONE ×2 (07:13→08:56)
[2017-01-11] MEDS ORDERED: NiCARdipine 2.5 MG/10 ML Syringe IVPB ONE (07:17)
--- NOTE | 2017-01-11 07:17 | History & Physical Report ---
Date of Encounter: 01/11/17 Time of Encounter: 07:20 24 Hour HP Update - Instructions Instructions: If the History and Physical is less than 30 days old and was completed prior to A.M. admission and or procedure and has NOT been updated on calendar day of procedure please complete this update prior to performing procedure. - Update Patient reports changes in Medical Condition: No Changes in Medication: No Preop tests/diagnostics Reviewed: Yes Pre-Op MRSA Screen: Negative Surgery Remains Indicated: Yes Consent for Planned Operative Procedure(s) Verified: Yes - Pre-Operative Checklist Preoperative Checklist Indicated: No Prophylactic Antibiotic Ordered: Yes Home Medications Include Beta Kamille: Yes Beta Kamille Taken Today (Day of Surgery): Yes Beta Kamille Taken Yesterday (Day Prior to Surgery): Yes Is VTE Prophylaxis Indicated?: NO
[2017-01-11] MEDS ORDERED: Clindamycin 900 MG/50 ML 900 MG/50 ML IV.SOLN IVPB ONE ×2 (07:23→10:41)
[2017-01-11] MEDS ORDERED: Lidocaine -MPF 1% 2 ML VIAL ID ONE (07:23)
[2017-01-11] MEDS ORDERED: Plasma-Lyte A (PH 7.4) 1,000 ML IVC SCH (07:30)
--- NOTE | 2017-01-11 07:41 | Anesthesia Evaluation PreOp ---
Date of Encounter: 01/11/17 Time of Encounter: 07:39 - Past History Planned Operation: CABG Cardiac History: LA, Angina, HTN, Hyperlipidemia Pulmonary History: Other (hx PE 2004) COMPLEX CARE NURSE History: Other (diabetic neuropathy and retinopathy) Other Medical History: Renal (stage 3 CKD), Diabetes Type I (age 12 onset, on insulin pump), Thyroid (hypo) Anesthesia History: No Prior Anesthetic Complications, Past Anesthesia (catarcts , ganglion cyst) Alcohol Use: occasionally Drug use: none Medications and Allergies Calcitriol [Rocaltrol] 0.25 mcg PO DAILY 01/02/17 [History] Cholecalciferol (D-3) [Vitamin D] 5,000 unit PO DAILY 01/02/17 [History] Isosorbide MONOnitrate (24 HR) [Imdur] 60 mg PO DAILY 01/02/17 [History] Levothyroxine Sodium [Tirosint] 75 mcg PO QAM 01/02/17 [History] Simvastatin [Zocor] 40 mg PO HS 01/02/17 [History] Aspirin 81 mg PO DAILY 01/04/17 [Rx] FLUoxetine HCl [Prozac] 10 mg PO DAILY 01/04/17 [Rx] Metoprolol [Lopressor] 12.5 mg PO BID #60 tab 01/04/17 [Rx] Nitroglycerin 0.4 mg SL Q5MIN PRN 01/04/17 [Rx] Biotin 10,000 mcg PO DAILY 01/11/17 [History] Gabapentin [Neurontin] 600 mg PO HS 01/11/17 [History] Subcutaneous Insulin Pump [T:Slim] 1 each MC AD 01/11/17 [History] 3 Allergy/AdvReac Type Severity Reaction Status Date / Time Penicillins Allergy Hives Verified 01/11/17 07:36 bacitracin AdvReac See Verified 01/11/17 07:36 Comments cephalexin [From Keflex] AdvReac Itching Verified 01/11/17 07:36 - Meds/Allergy Pre-op Review Medications Reviewed: Yes Allergies Reviewed: Yes Beta Blockers on Current Med List: Yes If Beta Blockers taken, Date/Time (Last Dose taken): today 0530 Anesthesia Results - Labs Laboratory Tests 01/02/17 01/04/17 01/06/17 10:36 01:20 11:31 Hgb 13.5 Hct 41.7 Plt Count 242 PT 10.0 INR 0.9 APTT 24.6 L Sodium 137 Potassium 4.4 BUN 17 Creatinine 1.29 H - Imaging EKG: report reviewed Additional studies: echo: LVEF 60%. Normal left ventricular size and systolic function. There is evidence of moderate diastolic dysfunction of the left ventricle with elevated filling pressures. Normal right ventricular size and function. Mild mitral regurgitation. No pulmonary hypertensio carotid: The right internal carotid artery has a 40-59% stenosis. The left carotid artery has minimal plaque throughout. Cath: There is severe three vessel coronary artery disease. There is mild LV Dysfunction EF 50% Anesthesia Exam Weight: 96kg NPO (# of Hours): 8 Pain Scale: 0 Pain Scale Used: Numeric (1 - 10) - HEENT Pupil (Motor): EOMI Mallampati: III Teeth: Normal Oral Opening: Greater than 3 - COMPLEX CARE NURSE LOC: Oriented COMPLEX CARE NURSE Motor: Normal RUE, Normal LUE, Normal RLE, Normal LLE, Normal Face COMPLEX CARE NURSE Sensory: Normal: RUE, LUE, RLE, LLE, Face - Cardiac Rhythm: Regular Murmur: None - Pulmonary Breath Sounds: bilateral Clear Respiratory Effort: Symmetrical Anesthesia Assess/Plan ASA Score: 4 Modified Sebastien Scale for Level of Consciousness: Cooperative, oriented, and tranquil Anesthetic Plan: General Monitoring Plan: Standard Monitors, A-Line, PAC, JULIANNE Recovery Plan: ICU (Discussed risks of GA, lines, JULIANNE and blood products. Questions answered and agrees to proceed.)
[2017-01-11] MEDS ORDERED: Chlorhexidine Rinse 15 ML MOUTHWASH MM ONE (08:00)
[2017-01-11] MEDS ORDERED: Ringers Solution, Lactated 1,000 ML IVC SCH (08:00)
[2017-01-11] MEDS ORDERED: 0.9 % Sodium Chloride 500 ML ONE (08:55)
[2017-01-11] MEDS ORDERED: Albumin Human 5% 50.0 GM/1,000 ML VIAL ONE (08:56)
--- NOTE | 2017-01-11 09:20 | Anesthesia Procedures ---
Date of Encounter: 01/11/17 Time of Encounter: 08:25 Procedures: Anesthesia - Arterial Line Consent obtained: written consent Time out performed: Yes Sedation: Versed (mg): 3 Sedation: Fentanyl (mcg): 150 Supplemental Oxygen via Nasal Cannula (L/min): 2 Local Anesthetic: Lidocaine 1% Size (Gauge): 20 Length (inches): 5 Technique Used: sterile prep, guide wire technique, direct puncture technique Post-Procedure: line taped into place, dry sterile dressing placed Patient tolerated procedure: well, no complications Complications: none Site: Radial L (attempt x 1, easy) - Central Line Placement Right IJ Consent obtained: written consent Time out performed: Yes Patient placed on monitor/pulse ox: Yes MD prep: mask, gown, gloves Central line prep: Chlorhexidine scrub Ultrasound used for placement: Yes Technique: Seldinger Lumen Inserted: Introducer Post procedure: sutured in place, good blood return, all ports aspirated, flushed, capped, sterile dressing applied Patient tolerated procedure: well, no complications Complications: none (introducer placed easily, attempt x 1, swan floated easily without arrythmias, wedge approx 48cm)
[2017-01-11] MEDS ORDERED: *HR* Rocuronium Bromide 50 MG/5 ML VIAL ONE (09:59)
[2017-01-11] MEDS ORDERED: *HR* Phenylephrine 10 MG/ML VIAL ONE (09:59)
[2017-01-11] MEDS ORDERED: Tranexamic Acid 1,000 MG/10 ML VIAL ONE ×2 (09:59→10:00)
[2017-01-11] MEDS ORDERED: Famotidine 20 MG/2 ML VIAL ONE (09:59)
[2017-01-11] MEDS ORDERED: Protamine Sulfate 250 MG/25 ML VIAL IVP ONE (09:59)
[2017-01-11] MEDS ORDERED: *HR* Etomidate 20 MG/10 ML AMPUL IVP ONE (09:59)
[2017-01-11] MEDS ORDERED: Mannitol 25% vial 12.5 GM/50 ML VIAL IVP ONE (10:54)
[2017-01-11] MEDS ORDERED: Albumin Human 25% 25 GM/100 ML IV.SOLN IV ONE (10:54)
[2017-01-11] MEDS ORDERED: *HR* Magnesium Sulfate 2 GM/50 ML PIGGYBACK IVPB ONE (10:54)
[2017-01-11] MEDS ORDERED: Lidocaine 2% Syringe 100 MG/5 ML IV ONE (10:54)
[2017-01-11] MEDS ORDERED: *HR* Heparin 10,000 UNIT/10 ML VIAL IV ONE (10:54)
[2017-01-11] MEDS ORDERED: *HR* Phenylephrine 10 MG/ML VIAL IVC ONE (10:54)
[2017-01-11] MEDS ORDERED: Naloxone 0.4 MG/ML INJ IVP PRN (12:53)
[2017-01-11] MEDS ORDERED: Insulin Human Regular 300 UNIT/3 ML per UNIT IV PRN (12:53)
[2017-01-11] MEDS ORDERED: Magnesium Sulfate 2 GM in D5% in Water 100 ML IVPB PRN (12:53)
[2017-01-11] MEDS ORDERED: Acetaminophen 325 MG TABLET PO PRN (12:53)
[2017-01-11] MEDS ORDERED: Calcium Chloride 1,000 MG in 0.9 % Sodium Chloride 100 ML IVPB PRN (12:53)
[2017-01-11] MEDS ORDERED: *HR* Dextrose 50 % in Water (Syg) 50 ML SYRINGE IVP PRN (12:53)
[2017-01-11] MEDS ORDERED: Potassium Chloride 40 MEQ/200 ML BAG IVPB PRN (12:53)
[2017-01-11] MEDS ORDERED: Acetaminophen 650 MG RECTAL SUPP RC PRN (12:53)
[2017-01-11] MEDS ORDERED: *HR* Morphine 2 MG/ML SYRINGE IVP PRN (12:53)
--- NOTE | 2017-01-11 12:53 | Operative Note ---
Date of procedure: 01/11/17 Pre-op diagnosis: CAD Post-op diagnosis: same Procedure: 1. CABG 2 (Free TIDWELL to LAD, SVG to PDA). 2. Endoscopic vein harvesting, greater saphenous vein from left lower extremity. Implants: None. Complications: None. Anesthesia: CHERELLE Surgeon: Jaime Danielle Resident Engineer: Arnold Pierce Specimen: None. Condition: stable Disposition: ICU Procedure in Detail: INDICATIONS FOR OPERATION: The patient is a type I diabetic, hypertensive, moderately obese lady with exertional angina.. She was initially seen by my partner, Dr. Oj Duarte, on January 03, 2017 at [facility] after her cardiac catheterization. Her cardiac symptoms began approximately 4 weeks ago and were described as exertional, nonradiating substernal chest pain without shortness of breath or other associated symptoms. 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 The sternal chest pain will resolve quickly with rest; however, would recur shortly after resuming her activity. She mentioned these symptoms to her primary care provider who referred her for cardiac workup. She underwent a transthoracic echocardiogram which revealed an LVEF 60% with normal left ventricular size and systolic function. She also had evidence of moderate diastolic ventricular dysfunction with elevated filling pressures. An exercise nuclear stress test revealed distal anterior and anterolateral wall infarction with trevin-infarct ischemia. Subsequent cardiac catheterization revealed severe 3 vessel CAD and an LVEF 50%. In particular, she had an 80% mid LAD lesion, an 80% proximal D1 lesion, an 80% proximal LCx lesion, a 90% proximal OM1 lesion (small vessel), 80% mid RCA lesion, and a 90% distal RCA lesion. She was recommended for CABG. She had requested that I perform the CABG since I had performed a previous thoracic procedure on her sister. FINDINGS AT OPERATION: The aorta was of normal caliber without calcification. The coronary arteries were small, measuring 1.25-1.5 mm in diameter, and and had diffuse calcification. The TIDWELL was used as a free graft due to a proximal injury during harvesting. The greater saphenous vein was harvested endoscopically from the left lower extremity from the knee to the groin and was of good quality. The total bypass time was 70 minutes, cross-clamp time 29 minutes, intentional hypothermia 34.3C. DESCRIPTION FOR OPERATION: After obtaining informed consent from the patient, she was taken to the operative tumor satisfactory general endotracheal anesthetic was induced. Appropriate monitoring lines were placed, and the chest, abdomen, and lower extremities were prepped and draped in a sterile fashion. The greater saphenous vein was harvested endoscopically from the left lower extremity from the knee to the groin. The vein was removed, distended, and found to be of good quality. Simultaneously a standard median sternotomy incision was made and the sternum divided. The TIDWELL was taken down from its bed using electrocautery and side branches divided between hemoclips. Unfortunately the TIDWELL was densely adherent to the sternum in the area of the manubrium. During dissection a proximal injury was made through the arterial wall and this could not be repaired satisfactorily with 7-0 Prolene suture. This point it was decided that the TIDWELL would be used as a free graft. The TIDWELL was divided proximally. The sternum was , and the pericardium opened and reflected laterally. The patient was. Cannulation by placing pursestring sutures the distal ascending aorta, mid-ascending aorta, and right atrial appendage. The patient was heparinized when he is to use greater than 200 seconds, the distal ascending aorta was cannulated followed by placement of a dual stage venous cannula through the right atrial appendage and into the inferior vena cava. A stab-in antegrade metabolic and was placed in mid-ascending aorta. The patient was placed on bypass and the distal targets were identified. The LAD was diffusely diseased throughout its entire length with the exception of the distal 25% of the artery. The LCx and OM branch were small and diffusely diseased and could not be bypassed. The RCA and PDA were diffusely diseased however the distal 50% of the artery was of adequate caliber and relatively free of disease. The aorta was crossclamped and the patient received 700 mL of cold antegrade crystalloid cardioplegia through the aortic root. The patient's heart obtain rapid diastolic arrest. The PDA was opened with [place] blade and the vein was anastomosed in an end-to-side fashion using running 7-0 Prolene suture. The anastomosis was found to be hemostatic. The patient received a notice of cold antegrade crystalloid cardioplegia through the aortic root due to electrical activity. The LAD was opened distally and the TIDWELL was anastomosed in end-to- side fashion using running 7-0 Prolene suture. The anastomosis found to be hemostatic and the mammary pedicle was tacked to the epicardium using interrupted 5-0 silk suture. The free TIDWELL was of sufficient length to allow a proximal anastomosis to be completed to the aorta without having to lengthen the pedicle with a vein graft. The aortic cross-clamp was released and the heart distended. The vein was measured and cut to appropriate length. A partial occluding clamp was placed across the midascending aorta and the antegrade cardioplegia cannula was removed. An additional aortotomy site was then made 11 blade and both sides were large the 4 mm punch. The free TIDWELL was anastomosed in an end-to-side fashion to the aorta using a running 6-0 Prolene suture. The vein graft was anastomosed in an end-to-side fashion to the aorta using a running 5-0 Prolene suture. The TIDWELL and vein grafts were occluded with a bulldog clamp. The vein graft was de-aired with a 25-gauge needle prior to moving the partial occluding clamp. The proximal distal anastomoses found to be hemostatic and the proximal vein graft anastomosis was marked with a radiopaque loop. Two right ventricular temporary epicardial pacing was replaced, and 3 chest tubes were placed, 2 in the mediastinum and one into the left pleural space. During rewarming the patient's heart regained normal sinus rhythm spontaneously. The patient's systemic temperature reached 37C, the patient was ventilated received volume. She was awakened from bypass required no inotropic support. Protamine was administered and the aortic and venous cannula were removed. The pursestring sutures were secured and the venous cannulation site was reinforced with a 4-0 Prolene suture. The pericardial fat could not be reapproximated in the midline due to excessive tension. The sternum was reapproximated using doubled wires in the pectoralis major fascia, rectus abdominis fascia, subcutaneous tissue, and skin edges were reapproximated using running Vicryl sutures. A negative pressure sterile dressing was applied to the sternotomy incision.. The patient was transferred to the ICU in satisfactory postoperative condition. There were no intraoperative complications, and the attachment, needle, and sponge count were corrected and operation. - Open Heart Detail ALEXA (Internal Mammary Artery) Usage: Yes Cardiopulmonary Bypass Time (mins): 70 Aortic Cross Clamp Time (mins): 29 Intentional Hypothermia Temperature (C.): 34.3
[2017-01-11] MEDS ORDERED: 0.9 % Sodium Chloride w KCl 20 MEQ/1,000 ML MLS IVC SCH (13:00)
[2017-01-11 13:09] LABS: ABG Base Excess 0.6 mEq/L (-2.0 to 3.0); ABG HCO3 24 mEq/L (21-27); ABG Oxygen Saturation 97 % (95-98); ABG PCO2 34 mmHg (35-45); ABG PO2 86 mmHg (85-104); ABG TCO2 25.2 mEq/L (20-26)
[2017-01-11 13:10] LABS: ABG PH 7.46 pH Units (7.32-7.45); Blood Gas FiO2 50 %; Blood Gas PEEP 5 cm H2O; Hemoglobin 10.6 g/dL (11.5-15.4)
[2017-01-11 13:11] LABS: Hematocrit 30.8 % (35.3-44.9); Mean Corpuscular HGB Conc 34.4 g/dL (31.6-35.5); Mean Corpuscular Hemoglobin 30.6 pg (28.0-33.3); Mean Platelet Volume 10.7 fL (9.4-12.4); Platelet Count 146 K/mcL (140-400); Red Blood Count 3.46 M/mcL (3.82-4.97); Red Cell Distribution Width 12.3 % (11.5-14.5)
[2017-01-11 13:12] LABS: INR 1.4; Prothrombin Time 15.3 Seconds (9.4-12.1)
[2017-01-11 13:15] LABS: Activated Partial Thrombo Time 27.1 Seconds (26.0-36.0)
[2017-01-11 13:17] LABS: Calcium 9.1 mg/dL (8.6-10.8); Magnesium 2.2 mg/dL (1.6-2.6); Potassium 4.3 mEq/L (3.5-4.5)
[2017-01-11 13:52] LABS: Eosinophils # 0.6 K/mcL (0.0-0.6); Monocytes # 0.6 K/mcL (0.0-1.3); Neutrophils # 24.8 K/mcL (1.6-8.9)
[2017-01-11 13:53] LABS: Platelet Estimate Normal (Normal)
[2017-01-11] MEDS: Insulin Human Regular 100 UNIT in 0.9 % Sodium Chloride 100 ML IVC SCH (14:00)
[2017-01-11] MEDS: Pantoprazole 40 MG VIAL IVP SCH (14:20)
[2017-01-11] MEDS: Norepinephrine 4 MG in D5% in Water 250 ML IVC SCH (14:24)
[2017-01-11] MEDS: 0.9 % Sodium Chloride 1,000 ML IVC SCH (14:37)
[2017-01-11] MEDS: *HR* Morphine 2 MG/ML SYRINGE IVP PRN (15:10)
[2017-01-11] MEDS: Clindamycin 900 MG/50 ML 900 MG/50 ML IV.SOLN IVPB SCH (16:18)
[2017-01-11 16:57] LABS: ABG Base Excess 1.2 mEq/L (-2.0 to 3.0); ABG HCO3 26 mEq/L (21-27); ABG Oxygen Saturation 99 % (95-98); ABG PCO2 41 mmHg (35-45); ABG PH 7.41 pH Units (7.32-7.45); ABG PO2 139 mmHg (85-104); ABG TCO2 27.3 mEq/L (20-26)
[2017-01-11 16:58] LABS: Blood Gas FiO2 40 %
--- NOTE | 2017-01-11 17:27 | Event Note ---
Date of Encounter: 01/11/17 Time of Encounter: 17:26 Nephrology Reviewed labs, vitals, progress notes, and placed AM renal function orders for phos, Mg, CK in addition to the CBC and BMP already ordered. Continue to follow a renal protective strategy. Full consult to follow tomorrow. Thank you.
[2017-01-11] MEDS: Metoclopramide 10 MG/2 ML VIAL IVP SCH (17:48)
[2017-01-11 18:49] LABS: ABG Base Excess 0.4 mEq/L (-2.0 to 3.0); ABG HCO3 26 mEq/L (21-27); ABG Oxygen Saturation 99 % (95-98); ABG PCO2 45 mmHg (35-45); ABG PH 7.37 pH Units (7.32-7.45); ABG PO2 122 mmHg (85-104); ABG TCO2 27.4 mEq/L (20-26)
[2017-01-11 18:52] LABS: Blood Gas FiO2 40 %
[2017-01-11 20:27] LABS: ABG Base Excess -1.2 mEq/L (-2.0 to 3.0); ABG HCO3 25 mEq/L (21-27); ABG Oxygen Saturation 97 % (95-98); ABG PCO2 46 mmHg (35-45); ABG PH 7.34 pH Units (7.32-7.45); ABG PO2 91 mmHg (85-104); ABG TCO2 26.2 mEq/L (20-26); Blood Gas FiO2 28 %
[2017-01-11] MEDS: Chlorhexidine Rinse 15 ML MOUTHWASH MM SCH (20:32)
[2017-01-12] MEDS: Ondansetron 4 MG/2 ML VIAL IVP PRN ×2 (00:13→14:35)
[2017-01-12] MEDS: Metoclopramide 10 MG/2 ML VIAL IVP SCH ×4 (00:13→17:53)
[2017-01-12] MEDS: Clindamycin 900 MG/50 ML 900 MG/50 ML IV.SOLN IVPB SCH (00:13)
[2017-01-12 03:59] LABS: Basophils % 0.1 %; Hematocrit 26.1 % (35.3-44.9); Hemoglobin 8.7 g/dL (11.5-15.4); Immature Granulocytes % 0.4 % (0-4); Immature Platelets 5.5 % (1.1-6.1); Lymphocytes # 0.4 K/mcL (0.6-4.6); Mean Corpuscular HGB Conc 33.3 g/dL (31.6-35.5); Mean Corpuscular Hemoglobin 30.4 pg (28.0-33.3); Mean Corpuscular Volume 91.3 fL (83.0-100.0); Mean Platelet Volume 11.5 fL (9.4-12.4); Monocytes # 0.5 K/mcL (0.0-1.3); Monocytes % 3.6 %; Neutrophils # 12.9 K/mcL (1.6-8.9); Platelet Count 101 K/mcL (140-400); Red Blood Count 2.86 M/mcL (3.82-4.97); Red Cell Distribution Width 12.6 % (11.5-14.5); Segmented Neutrophils % 92.9 %
[2017-01-12 04:25] LABS: Calcium 8.4 mg/dL (8.6-10.8); Magnesium 1.9 mg/dL (1.6-2.6); Potassium 4.4 mEq/L (3.5-4.5)
[2017-01-12 04:37] LABS: INR 1.2; Prothrombin Time 12.7 Seconds (9.4-12.1)
[2017-01-12 04:39] LABS: Activated Partial Thrombo Time 23.3 Seconds (26.0-36.0)
[2017-01-12] MEDS: *HR* Morphine 2 MG/ML SYRINGE IVP PRN ×2 (05:33→13:09)
--- NOTE | 2017-01-12 06:07 | Electrocardiograph Report ---
[address] [address] Test Date: 2017-01-11 Pat Name: Tonia Mujica Department: 109 Room: [facility] Gender: F Guest Experience Specialist: MIN : 1960 Requested By: Jaime Danielle Order Number: [id number] Reading MD: Andres Richardson MD Measurements Intervals [place] Rate: 71 P: 28 NE: 156 QRS: 48 QRSD: 83 T: 72 QT: 402 QTc: 424 Interpretive Statements SINUS RHYTHM LOW QRS VOLTAGE IN PRECORDIAL LEADS MILD ST ELEVATION, NONDIAGNOSTIC OF ACUTE UT. REPEAT EKG IF CLINICAL CONCERN Electronically Signed On 01-12-2017 6:05:58 EDT by Andres Richardson MD
[2017-01-12 06:10] LABS: Phosphorous 14.2 mg/dL (2.3-4.7); Uric Acid 4.6 mg/dL (2.6-6.0)
--- NOTE | 2017-01-12 07:53 | Cardiothoracic Progress Note ---
Date of Encounter: 01/12/17 Time of Encounter: 07:50 - Assessment and plan (1) CAD (coronary artery disease) Current Visit: Yes Status: Acute The patient is recovering well from her CABG2. She is currently extubated and breathing comfortably. The arterial line and [place] catheter will be removed. Soriano catheter will remain in place until she has been evaluated by nephrology. The patient will be monitored in the ICU today. The assessment and plan as outlined above was discussed with the patient and/or family members who expressed understanding and agreement. All questions were answered. Qualifiers: Coronary Disease-Associated Artery/Lesion type: [place] artery [place] vs. transplanted heart: [place] heart Associated angina: with unstable angina Qualified Code(s): I25.110 - Atherosclerotic heart disease of [place] coronary artery with unstable angina pectoris - Subjective Procedure(s) Performed: POD#1 S/P CABG2 Interval history: The patient remained hemodynamically stable overnight. She is currently extubated and breathing comfortably. She has no complaints. Vital Signs, Last 4 Hours Temp Pulse Resp BP Pulse Ox 01/12/17 07:34 12 97 01/12/17 06:54 98.6 F 73 16 117/44 96 01/12/17 06:00 98.6 F 75 16 116/48 96 01/12/17 05:00 98.6 F 80 16 130/48 95 01/12/17 04:05 16 127/46 95 01/12/17 04:00 98.6 F 70 16 129/45 96 Oxgyen Flow Rate Oxygen Flow Rate (LPM) 3 Clinical Data, last 8 Hours Output, Chest Tube Drainage 0 Amount [Mediastinal #2] Output, Chest Tube Drainage 0 Amount [Mediastinal #2] Output, Chest Tube Drainage 0 Amount [Mediastinal #2] Output, Chest Tube Drainage 0 Amount [Mediastinal #2] Output, Chest Tube Drainage 0 Amount [Mediastinal #2] Output, Chest Tube Drainage 0 Amount [Mediastinal #2] Output, Chest Tube Drainage 0 Amount [Mediastinal #2] Output, Chest Tube Drainage 5 Amount [Mediastinal #2] Output, Chest Tube Drainage 0 Amount [Mediastinal #1] Output, Chest Tube Drainage 20 Amount [Mediastinal #1] Output, Chest Tube Drainage 20 Amount [Mediastinal #1] Output, Chest Tube Drainage 20 Amount [Mediastinal #1] Output, Chest Tube Drainage 0 Amount [Mediastinal #1] Output, Chest Tube Drainage 10 Amount [Mediastinal #1] Output, Chest Tube Drainage 0 Amount [Mediastinal #1] Output, Chest Tube Drainage 30 Amount [Mediastinal #1] Weight 01/10/17 01/11/17 01/12/17 23:59 23:59 23:59 Weight 95.708 kg 98.51 kg - Physical Examination General: Conversant, No Apparent Distress Neck: No JVD, Normal carotid pulses Cardiac: Reg Rate and Rhythm, Normal S1 and S2, No Murmur, Other (Pericardial rub.) Incision: No signs of infection, Dry/intact dressing Sternum: Stable Chest tubes: Minimal drainage, Other (No air leak.) Lungs: Normal Breath Sounds, No Wheeze, Rales, Rhonchi Neuro: Alert and responsive, No focal deficits noted Vascular: Normal capillary refill Extremities: No Clubbing, No Cyanosis, No Edema - Labs 01/12/17 03:30 01/12/17 03:30 Lab Results, Last 24 hours 01/11/17 01/11/17 01/11/17 12:50 12:50 12:50 WBC 29.5 H Hgb 10.6 L Hct 30.8 L Plt Count 146 INR 1.4 APTT 27.1 Sodium 136 Potassium 4.3 Chloride 107 Carbon Dioxide 22 BUN 16 Creatinine 1.18 H Glucose 165 H Calcium 9.1 Magnesium 2.2 01/12/17 01/12/17 01/12/17 03:30 03:30 03:30 WBC 13.9 H D Hgb 8.7 L D Hct 26.1 L Plt Count 101 L INR 1.2 APTT 23.3 L Sodium 142 Potassium 4.4 Chloride 112 H Carbon Dioxide 22 BUN 19 Creatinine 1.44 H Glucose 129 H Calcium 8.4 L Magnesium 1.9 - Imaging Chest Xray: image reviewed (No pneumothorax. Bibasilar atelectasis.) - VTE Reasons for not Prescribing Prophylaxis: Medical contraindication Documentation of Mechanical Device: Graduated compression elastic hosiery Consult Discharge Plan - Plan Referrals: Ame Moreno CNP [Primary Care Provider] -
[2017-01-12] MEDS: Insulin Human Regular 100 UNIT in 0.9 % Sodium Chloride 100 ML IVC SCH (08:09)
[2017-01-12] MEDS: Pantoprazole 40 MG VIAL IVP SCH (08:16)
[2017-01-12] MEDS: Aspirin Enteric Coated 81 MG Tablet PO SCH (08:16)
[2017-01-12] MEDS: Furosemide 20 MG/2 ML VIAL IVP SCH ×2 (08:16→20:19)
[2017-01-12] MEDS: Chlorhexidine Rinse 15 ML MOUTHWASH MM SCH ×2 (08:16→20:18)
[2017-01-12] MEDS: niCARdipine 40 MG/200 ML MLS IVC SCH ×5 (08:19→19:54)
[2017-01-12] MEDS: Nitroglycerin 25 MG/250 ML INFUS..BTL IVC SCH ×5 (08:19→19:55)
[2017-01-12 08:53] LABS: ABG PCO2 40 mmHg (35-45); ABG PH 7.37 pH Units (7.32-7.45); ABG PO2 93 mmHg (85-104)
[2017-01-12 08:54] LABS: ABG Glucose 208 mg/dL (60-95); ABG HCO3 23 mEq/L (21-27); ABG Ionized Calcium 1.04 mmol/L (1.15-1.35); ABG Oxygen Saturation 97 % (95-98); ABG TCO2 24.3 mEq/L (20-26)
[2017-01-12 09:01] LABS: VBG HCO3 25.4 mEq/L (21-27); VBG PH 7.39 pH Units (7.32-7.42)
[2017-01-12 09:04] LABS: VBG HCO3 26.6 mEq/L (21-27); VBG Ionized Calcium 1.08 mmol/L (1.15-1.35); VBG PH 7.37 pH Units (7.32-7.42)
[2017-01-12 09:07] LABS: ABG Base Excess 2.5 mEq/L (-2.0 to 3.0); ABG HCO3 27 mEq/L (21-27); ABG Oxygen Saturation 100 % (95-98); ABG PCO2 42 mmHg (35-45); ABG PH 7.42 pH Units (7.32-7.45); ABG PO2 412 mmHg (85-104); ABG TCO2 28.5 mEq/L (20-26)
[2017-01-12 09:08] LABS: ABG Glucose 224 mg/dL (60-95); ABG Ionized Calcium 1.09 mmol/L (1.15-1.35)
[2017-01-12 09:14] LABS: ABG Base Excess 2.5 mEq/L (-2.0 to 3.0); ABG Glucose 199 mg/dL (60-95); ABG HCO3 27 mEq/L (21-27); ABG Ionized Calcium 1.12 mmol/L (1.15-1.35); ABG Oxygen Saturation 100 % (95-98); ABG PCO2 42 mmHg (35-45); ABG PH 7.42 pH Units (7.32-7.45); ABG PO2 420 mmHg (85-104); ABG TCO2 28.5 mEq/L (20-26)
[2017-01-12 09:16] LABS: ABG PCO2 42 mmHg (35-45); ABG PO2 105 mmHg (85-104)
[2017-01-12 09:17] LABS: ABG Base Excess 1.1 mEq/L (-2.0 to 3.0); ABG Glucose 141 mg/dL (60-95); ABG HCO3 26 mEq/L (21-27); ABG Ionized Calcium 1.36 mmol/L (1.15-1.35); ABG Oxygen Saturation 98 % (95-98); ABG TCO2 27.3 mEq/L (20-26)
[2017-01-12 09:21] LABS: ABG PCO2 59 mmHg (35-45); ABG PH 7.31 pH Units (7.32-7.45)
[2017-01-12 09:23] LABS: ABG Base Excess 2.1 mEq/L (-2.0 to 3.0); ABG Glucose 268 mg/dL (60-95); ABG HCO3 30 mEq/L (21-27); ABG Ionized Calcium 1.34 mmol/L (1.15-1.35); ABG Oxygen Saturation 77 % (95-98); ABG PO2 46 mmHg (85-104); ABG TCO2 31.5 mEq/L (20-26)
--- NOTE | 2017-01-12 10:00 | Anesthesia Evaluation Post Op ---
Date of Encounter: 01/12/17 Time of Encounter: 07:15 - Vital Signs Vital Signs: Selected Entries 01/12/17 07:00 Pulse Rate 73 Respiratory Rate 12 Blood Pressure 106/41 O2 Sat by Pulse Oximetry 96 Oxygen Flow Rate (LPM) 3 Oxygen Delivery Method Nasal Cannula - Lungs Lungs: Clear Ascult./Percussion - Airway Airway: Non-obstructed - Cardiovascular Regular Rate - Mental Status Mental Status: Alert & Oriented, Answers Appropriately - Pain Pain Scale: 5 Pain Scale used: Numeric (1 - 10) - Nausea Vomiting Nausea Vomiting: Not Present - Hydration Hydration: Tolerates oral liquids, Soriano catheter Notes: 01/12/17 09:58 Patient is POD #1 CABG. Is on no drips, has minimal CT drainage. Overall doing well. No apparent anesthesia complications. Will remain in ICU until CT surgery determines appropriate to transfer.
[2017-01-12] MEDS: Calcium Acetate 667 MG CAPSULE PO SCH ×3 (11:48→17:58)
--- NOTE | 2017-01-12 12:49 | Nephrology Consult Note ---
Date of Encounter: 01/12/17 Time of Encounter: 08:45 Assessment and Plan (1) CKD (chronic kidney disease) stage 3, GFR 30-59 ml/min Current Visit: No Status: Chronic CKD stage III and near her baseline, but slightly worse. No need for POLICY ADVISER today; continue to follow a renal protective strategy Hyperphosphatemia: Of note, her serum Phos was very elevated near 14, so I've added Phos-lo, which is a calcium based Phos binder to be given with meals. HTN: BPs are relatively stable Will follow with you. Thank you (2) Hyperphosphatemia Current Visit: Yes Status: Acute Starting Phos-Lo with meals. Will monitor Phos levels. (3) Anemia Current Visit: Yes Status: Acute Multifactorial. Will monitor. Qualifiers: Anemia type: unspecified type Qualified Code(s): D64.9 - Anemia, unspecified (4) Hypertension Current Visit: No Status: Chronic Will monitor. Qualifiers: Hypertension type: essential hypertension Qualified Code(s): I10 - Essential (primary) hypertension History of Present Illness - Reason for Consult Consult date: 01/11/17 Chronic Kidney Disease Requesting physician: Jaime Danielle - Chief Complaint CKD stage III, S/p CABG - History of Present Illness Ms Mujica is a 56 year old female with a PMH of HTN, diabetes, CDK stage 3 who was admitted for a left heart cath. Patient follows with Dr Guillen for her CKD stage 3. Nephrology has been consulted d/t her hx of CKD and she is s/p CABG. About 1-2 weeks ago she underwent a cardiac work up and was found to have triple vessel disease s/p C. Her follow up BMP was relatively stable about 3 days after the C. She returned for CABG with Dr. Danielle. She was seen/examined in the ICU. She did not affirm N/V/D. Past Med Surg Social Fam HX - Past Medical History Medical history: diabetes, hyperlipidemia, hypertension, pulmonary embolus, renal disease Psychiatric history: anxiety - Social History Smoking Status: Never smoker Smokeless Tobacco Status: No Alcohol use: occasionally Drug use: none - Family History Mother Hx Family Cardiac Disorders: No Hx Family Respiratory Disorders: No Hx Family Cancer: No Hx Family GI Disorders: No Hx Family Endocrine Disorder: Yes (thyroid) Hx Family Neuromuscular Disorders: No Hx Family Neurologic Disorders: No Hx Family HEENT Disorders: No Hx Family Autoimmune Disorders: No Father Living Status: Still Living Hx Family Cardiac Disorders: Yes (HLD) Hx Family Respiratory Disorders: No Hx Family Cancer: No Hx Family GI Disorders: No Hx Family Endocrine Disorder: Yes (DM 2) Hx Family Neuromuscular Disorders: No Hx Family Neurologic Disorders: No Hx Family HEENT Disorders: No Hx Family Autoimmune Disorders: No Medications and Allergies Calcitriol [Rocaltrol] 0.25 mcg PO HS 01/02/17 [History] Cholecalciferol (D-3) [Vitamin D] 5,000 unit PO HS 01/02/17 [History] Isosorbide MONOnitrate (24 HR) [Imdur] 60 mg PO DAILY 01/02/17 [History] Levothyroxine Sodium [Tirosint] 75 mcg PO QAM 01/02/17 [History] Simvastatin [Zocor] 40 mg PO HS 01/02/17 [History] Aspirin 81 mg PO DAILY 01/04/17 [Rx] FLUoxetine HCl [Prozac] 10 mg PO DAILY 01/04/17 [Rx] Metoprolol [Lopressor] 12.5 mg PO BID #60 tab 01/04/17 [Rx] Nitroglycerin 0.4 mg SL Q5MIN PRN 01/04/17 [Rx] Biotin 10,000 mcg PO DAILY 01/11/17 [History] Gabapentin [Neurontin] 600 mg PO HS 01/11/17 [History] Subcutaneous Insulin Pump [T:Slim] 1 each MC AD 01/11/17 [History] 3 Allergy/AdvReac Type Severity Reaction Status Date / Time Penicillins Allergy Hives Verified 01/11/17 07:36 bacitracin AdvReac See Verified 01/11/17 07:36 Comments cephalexin [From Keflex] AdvReac Itching Verified 01/11/17 07:36 Review of Systems All Systems: reviewed and no additional remarkable complaints except as stated Exam - Vital Signs Vital signs: Initial Vital Signs Temp Pulse Resp BP Pulse Ox 97.9 F 64 18 148/75 98 01/11/17 07:44 01/11/17 07:44 01/11/17 07:44 01/11/17 07:44 01/11/17 07:44 Vital Signs - Last 8 Hours Temp Pulse Resp BP Pulse Ox 01/12/17 12:12 72 01/12/17 12:08 72 16 104/63 97 01/12/17 11:45 98.4 F 01/12/17 11:00 76 16 104/61 97 01/12/17 10:00 80 16 141/66 97 01/12/17 09:20 79 97 01/12/17 09:00 77 16 112/56 98 01/12/17 08:00 98.4 F 79 16 140/51 97 01/12/17 07:34 12 97 01/12/17 07:00 73 12 106/41 96 01/12/17 06:54 98.6 F 73 16 117/44 96 01/12/17 06:00 98.6 F 75 16 116/48 96 01/12/17 05:00 98.6 F 80 16 130/48 95 Intake and Output 01/11/17 01/12/17 01/12/17 23:59 07:59 15:59 Intake Total 450 / 450 401 / 401 1000 / 1000 Output Total 1940 / 1940 450 / 450 930 / 930 Balance -1490 / -1490 -49 / -49 70 / 70 Intake: IV Fluids 300 / 300 401 / 401 1000 / 1000 0.9 % Sodium Chloride 1, 1000 / 1000 000 ML @ 50 mls/hr IVC . Q20H [facility] Rx#:[id number] HumuLIN R 100 UNIT In 0. 97 / 97 9 % Sodium Chloride 100 ML @ 1 UNIT/HR 1.01 mls/ hr IVC CONT [facility] Rx#: [id number] Levophed 4 MG In Dextrose 0 / 0 4 / 4 5% 250 ML @ 8 MCG/MIN 30 .48 mls/hr IVC CONT [facility] Rx#:[id number] ALBURX 5% 12.5 gm In 250 250 / 250 250 / 250 ml @ 999 mls/hr IVPB AD PRN Rx#:[id number] Cleocin Premix 900 MG/50 50 / 50 50 / 50 ML 900 mg In 50 ml @ 50 mls/hr IVPB Q8HR [facility] Rx#: [id number] Oral 0 / 0 0 / 0 Intake, Autotransfusion 150 / 150 Amount Output: Catheter 1585 / 1585 345 / 345 700 / 700 Gastric Drainage 75 / 75 Chest Tube Drainage 280 / 280 105 / 105 230 / 230 Mediastinal #1 250 / 250 100 / 100 200 / 200 Mediastinal #2 5 / 5 30 Other: Meal Lunch Percent of Meal Consumed 50% Weight 98.51 kg Blood Glucose* 164 151 95 Patient Weight 01/12/17 23:59 Weight 98.51 kg - General Appearance General appearance: well-developed, well-nourished, appears started age, frail EENT: ATNC, PERRL Neck: supple Respiratory: clear Cardiology: no edema, regular rate, regular rhythm, normal S1, normal S2 Additional Comments: Chest tubes Gastrointestinal: normoactive bowel sounds, no tenderness, no guarding Integumentary: warm and dry Neurologic: no asterixis Musculoskeletal: no clubbing Psychiatric: mood/affect appropriate, cooperative Results - Lab Results 01/12/17 03:30 01/12/17 03:30 Most recent lab results ABG pH 7.34 pH Units (7.32-7.45) 01/11/17 20:17 ABG pCO2 46 mmHg (35-45) H 01/11/17 20:17 ABG pO2 91 mmHg (85-104) 01/11/17 20:17 ABG HCO3 25 mEq/L (21-27) 01/11/17 20:17 ABG O2 Saturation 97 % (95-98) 01/11/17 20:17 Calcium 8.4 mg/dL (8.6-10.8) L 01/12/17 03:30 Phosphorus 14.2 mg/dL (2.3-4.7) H 01/12/17 03:30 Magnesium 1.9 mg/dL (1.6-2.6) 01/12/17 03:30 I reviewed the above data, progress notes, labs, meds, vitals and imaging. Consult Discharge Plan - Plan Referrals: Ame Moreno BLENDER [Primary Care Provider] -
[2017-01-12] MEDS ORDERED: *HR* Dextrose 50 % in Water (Syg) 50 ML SYRINGE IVP PRN (13:22)
[2017-01-12] MEDS ORDERED: Dextrose Gel 15 GM PO PRN ×2 (13:22)
[2017-01-12] MEDS ORDERED: D5% in Water 1,000 ML IVC PRN (13:22)
[2017-01-12] MEDS: Insulin LISPRO 300 UNITS/3 ML VIAL SQ SCH ×2 (16:28→20:21)
[2017-01-12] MEDS: 0.9 % Sodium Chloride 1,000 ML IVC SCH (19:53)
[2017-01-12] MEDS: Norepinephrine 4 MG in D5% in Water 250 ML IVC SCH (19:53)
[2017-01-12] MEDS: *HR* OxyCODONE/APAP 5/325 TABLET PO PRN (22:38)
[2017-01-13] MEDS: Metoclopramide 10 MG/2 ML VIAL IVP SCH ×4 (00:04→17:09)
[2017-01-13] MEDS: niCARdipine 40 MG/200 ML MLS IVC SCH ×3 (03:08→13:58)
[2017-01-13 03:30] LABS: Basophils # 0.1 K/mcL (0.0-0.2); Basophils % 0.3 %; Eosinophils % 0.1 %; Hematocrit 32.5 % (35.3-44.9); Hemoglobin 10.4 g/dL (11.5-15.4); Immature Granulocytes % 0.6 % (0-4); Lymphocytes # 1.2 K/mcL (0.6-4.6); Lymphocytes % 7.6 %; Mean Corpuscular Hemoglobin 29.7 pg (28.0-33.3); Mean Corpuscular Volume 92.9 fL (83.0-100.0); Mean Platelet Volume 11.8 fL (9.4-12.4); Monocytes # 1.2 K/mcL (0.0-1.3); Monocytes % 7.2 %; Neutrophils # 13.5 K/mcL (1.6-8.9); Platelet Count 127 K/mcL (140-400); Red Cell Distribution Width 12.6 % (11.5-14.5); Segmented Neutrophils % 84.2 %
[2017-01-13 03:40] LABS: Calcium 9.6 mg/dL (8.6-10.8); Magnesium 1.7 mg/dL (1.6-2.6); Potassium 4.6 mEq/L (3.5-4.5)
[2017-01-13 03:43] LABS: Phosphorous 3.3 mg/dL (2.3-4.7)
[2017-01-13] MEDS: 0.9 % Sodium Chloride 1,000 ML IVC SCH (06:19)
[2017-01-13] MEDS: *HR* OxyCODONE/APAP 5/325 TABLET PO PRN ×3 (06:27→20:59)
[2017-01-13] MEDS: Insulin LISPRO 300 UNITS/3 ML VIAL SQ SCH ×5 (08:24→23:52)
[2017-01-13] MEDS: Aspirin Enteric Coated 81 MG Tablet PO SCH (08:50)
[2017-01-13] MEDS: Nitroglycerin 25 MG/250 ML INFUS..BTL IVC SCH (08:51)
[2017-01-13] MEDS: Calcium Acetate 667 MG CAPSULE PO SCH ×3 (08:51→17:09)
[2017-01-13] MEDS: Pantoprazole 40 MG VIAL IVP SCH (08:52)
[2017-01-13] MEDS: Furosemide 20 MG/2 ML VIAL IVP SCH ×2 (08:52→20:58)
[2017-01-13] MEDS: Chlorhexidine Rinse 15 ML MOUTHWASH MM SCH ×2 (08:52→21:00)
--- NOTE | 2017-01-13 09:14 | Cardiothoracic Progress Note ---
Date of Encounter: 01/13/17 Time of Encounter: 09:12 - Assessment and plan (1) CAD (coronary artery disease) Current Visit: Yes Status: Acute The patient is recovering well from her CABG2. She is breathing comfortably. The Soriano catheter will be removed. She will be transferred to the stepdown unit when a bed is available. She will restart her insulin pump today to help control her blood sugars. The assessment and plan as outlined above was discussed with the patient and/or family members who expressed understanding and agreement. All questions were answered. Qualifiers: Coronary Disease-Associated Artery/Lesion type: [place] artery [place] vs. transplanted heart: [place] heart Associated angina: with unstable angina Qualified Code(s): I25.110 - Atherosclerotic heart disease of [place] coronary artery with unstable angina pectoris - Subjective Procedure(s) Performed: POD#2 S/P CABG2 Interval history: The patient remained hemodynamically stable overnight. She is breathing comfortably. She has no complaints. Vital Signs, Last 4 Hours Temp Pulse Resp BP Pulse Ox 01/13/17 08:20 16 98 01/13/17 07:30 98.8 F 01/13/17 06:00 88 12 138/61 98 Oxgyen Flow Rate Oxygen Flow Rate (LPM) 3 Clinical Data, last 8 Hours Output, Chest Tube Drainage 0 Amount [Mediastinal #2] Output, Chest Tube Drainage 20 Amount [Mediastinal #1] Weight 01/11/17 01/12/17 01/13/17 23:59 23:59 23:59 Weight 95.708 kg 98.51 kg 100.2 kg - Physical Examination General: Conversant, No Apparent Distress Neck: No JVD, Normal carotid pulses Cardiac: Reg Rate and Rhythm, Normal S1 and S2, No Murmur Incision: No signs of infection, Dry/intact dressing Sternum: Stable Chest tubes: Minimal drainage, Other (No air leak.) Lungs: Normal Breath Sounds, No Wheeze, Rales, Rhonchi Neuro: Alert and responsive, No focal deficits noted Vascular: Normal capillary refill Extremities: No Clubbing, No Cyanosis, No Edema - Labs 01/13/17 03:20 01/13/17 03:20 Lab Results, Last 24 hours 01/13/17 01/13/17 01/13/17 03:20 03:20 03:20 WBC 16.0 H Hgb 10.4 L D Hct 32.5 L Plt Count 127 L Sodium 138 Potassium 4.6 H Chloride 103 Carbon Dioxide 23 BUN 25 H Creatinine 1.87 H Glucose 323 H Calcium 9.6 Magnesium 1.7 - Imaging Chest Xray: image reviewed (No pneumothorax. Bibasilar atelectasis.) - VTE Reasons for not Prescribing Prophylaxis: Medical contraindication Documentation of Mechanical Device: Graduated compression elastic hosiery Consult Discharge Plan - Plan Referrals: Ame Moreno, PROFILE SHAPER OPERATOR [Primary Care Provider] -
--- NOTE | 2017-01-13 10:38 | Nephrology Progress Note ---
Date of Encounter: 01/13/17 Time of Encounter: 10:36 - Assessment and Plan (1) Acute kidney injury superimposed on chronic kidney disease Current Visit: Yes Status: Acute Patient with non-oliguric post surgical acute kidney injury. Hopeful for renal recovery. At this time she does not require renal replacement therapy. (2) CAD (coronary artery disease) Current Visit: Yes Status: Acute Status post CABG. Per primary team. Qualifiers: Coronary Disease-Associated Artery/Lesion type: [place] artery [place] vs. transplanted heart: [place] heart Associated angina: with unstable angina Qualified Code(s): I25.110 - Atherosclerotic heart disease of [place] coronary artery with unstable angina pectoris (3) Anemia Current Visit: Yes Status: Acute Transfuse as needed. Qualifiers: Anemia type: unspecified type Qualified Code(s): D64.9 - Anemia, unspecified (4) Hyperphosphatemia Current Visit: Yes Status: Acute Question if the phosphorus of 14 was real. We will repeat phosphorus level in the morning. (5) Hypertension Current Visit: No Status: Ruled-out Blood pressure is controlled. Qualifiers: Hypertension type: essential hypertension Qualified Code(s): I10 - Essential (primary) hypertension Subjective Principal diagnosis: CAIT/CKD Interval history: The patient was seen and evaluated. She is sitting up in a chair comfortable and without complaint. She denies chest pain, states that the pain from her incision is controlled. She denies dyspnea. She reports that her appetite is still depressed, but denies nausea or vomiting. Objective - Vital Signs Vital signs: Vital Signs Temp Pulse Resp BP Pulse Ox 01/13/17 08:20 16 98 01/13/17 08:00 91 12 162/71 97 01/13/17 07:30 98.8 F 01/13/17 06:00 88 12 138/61 98 01/13/17 05:00 84 150/70 99 01/13/17 04:00 98.6 F 84 16 119/71 98 01/13/17 03:45 87 01/13/17 03:00 87 14 120/64 98 01/13/17 02:00 81 18 135/68 98 01/13/17 00:15 99.0 F 01/13/17 00:00 80 16 137/65 98 01/12/17 23:22 17 97 01/12/17 23:00 77 14 130/67 97 01/12/17 22:00 78 18 146/74 97 01/12/17 21:00 77 16 140/69 97 01/12/17 20:53 18 97 01/12/17 20:37 99.3 F 01/12/17 20:00 77 18 137/62 95 01/12/17 19:00 75 16 134/62 95 01/12/17 18:00 77 16 121/65 98 01/12/17 17:00 86 16 122/55 98 01/12/17 16:00 98.0 F 86 16 115/55 98 01/12/17 15:52 98.0 F 01/12/17 14:00 75 16 113/54 97 01/12/17 13:00 98.6 F 73 16 109/53 97 01/12/17 12:12 72 01/12/17 12:08 72 16 104/63 97 01/12/17 12:01 14 99 01/12/17 11:45 98.4 F 01/12/17 11:00 76 16 104/61 97 Intake and Output 01/12/17 01/13/17 01/13/17 23:59 07:59 15:59 Intake Total 0 / 0 Output Total 420 / 420 1315 / 1315 Balance -420 / -420 -1315 / -1315 Intake: IV Fluids 0 / 0 0.9 % Sodium Chloride 1, 0 / 0 000 ML @ 50 mls/hr IVC . Q20H [facility] Rx#:[id number] Output: Catheter 250 / 250 1250 / 1250 Chest Tube Drainage 170 / 170 65 / 65 Mediastinal #1 130 / 130 60 / 60 Mediastinal #2 40 / 40 5 / 5 Other: Weight 100.2 kg Blood Glucose* 229 390 Patient Weight 01/13/17 23:59 Weight 100.2 kg - General Appearance General appearance: Present: well-developed, well-nourished EENT: Present: ATNC Neck: Present: supple Respiratory: Present: clear Cardiology: Present: no edema, regular rate, regular rhythm Gastrointestinal: Present: no tenderness Integumentary: Present: warm and dry Neurologic: Present: alert and oriented x3 Musculoskeletal: Present: no cyanosis Psychiatric: Present: mood/affect appropriate - Lab 01/13/17 03:20 01/13/17 03:20 Most recent lab results ABG pH 7.34 pH Units (7.32-7.45) 01/11/17 20:17 ABG pCO2 46 mmHg (35-45) H 01/11/17 20:17 ABG pO2 91 mmHg (85-104) 01/11/17 20:17 ABG HCO3 25 mEq/L (21-27) 01/11/17 20:17 ABG O2 Saturation 97 % (95-98) 01/11/17 20:17 Calcium 9.6 mg/dL (8.6-10.8) 01/13/17 03:20 Phosphorus 3.3 mg/dL (2.3-4.7) D 01/13/17 03:20 Magnesium 1.7 mg/dL (1.6-2.6) 01/13/17 03:20 - VTE Reasons for not Prescribing Prophylaxis: Medical contraindication Documentation of Mechanical Device: Graduated compression elastic hosiery Consult Discharge Plan - Plan Referrals: Hugh Cook DO [Partnered Physician] - 01/31/17 3:00 pm Jaime Danielle MD [Partnered Physician] - 02/16/17 2:40 pm Moreno,Ame Araujo CNP [Primary Care Provider] - (spoke with Jess at [facility] office and she said she would call me back with an appointment on 01-13-17 @[phone])
[2017-01-13] MEDS ORDERED: D5% in Water 1,000 ML IVC PRN (12:54)
[2017-01-13] MEDS ORDERED: Dextrose Gel 15 GM PO PRN ×2 (12:54)
[2017-01-13] MEDS ORDERED: Nitroglycerin 0.4 MG TAB.SUBL SL PRN (12:54)
[2017-01-13] MEDS ORDERED: Acetaminophen 325 MG TABLET PO PRN (12:54)
[2017-01-13] MEDS ORDERED: Ondansetron 4 MG/2 ML VIAL IVP PRN (12:54)
[2017-01-13] MEDS ORDERED: Insulin Human Regular 300 UNIT/3 ML per UNIT IV PRN (12:54)
[2017-01-13] MEDS ORDERED: *HR* Morphine 2 MG/ML SYRINGE IVP PRN ×2 (12:54)
[2017-01-13] MEDS ORDERED: Naloxone 0.4 MG/ML INJ IVP PRN (12:54)
[2017-01-13] MEDS ORDERED: *HR* Dextrose 50 % in Water (Syg) 50 ML SYRINGE IVP PRN (12:54)
[2017-01-13] MEDS: (Biotin [Biotin] 10,000 MCG) PO SCH (13:57)
[2017-01-13] MEDS: (Subcutaneous Insulin Pump [T:Slim] 1 EACH) MC SCH (13:59)
[2017-01-13] MEDS: FLUoxetine HCl 10 MG CAPSULE PO SCH (14:00)
[2017-01-13] MEDS: *HR* Heparin 5,000 UNIT/ML VIAL SQ SCH (17:09)
[2017-01-13] MEDS: Gabapentin 300 MG CAPSULE PO SCH (20:58)
[2017-01-13] MEDS: Cholecalciferol (D-3) 1,000 UNIT TABLET PO SCH (21:07)
[2017-01-14] MEDS: Metoclopramide 10 MG/2 ML VIAL IVP SCH ×4 (01:11→17:38)
[2017-01-14 04:59] LABS: Basophils # 0.1 K/mcL (0.0-0.2); Basophils % 0.4 %; Eosinophils # 0.1 K/mcL (0.0-0.6); Eosinophils % 0.6 %; Hematocrit 32.4 % (35.3-44.9); Hemoglobin 10.7 g/dL (11.5-15.4); Immature Granulocytes % 0.9 % (0-4); Lymphocytes # 1.8 K/mcL (0.6-4.6); Mean Corpuscular Volume 90.8 fL (83.0-100.0); Mean Platelet Volume 11.2 fL (9.4-12.4); Monocytes % 7.4 %; Neutrophils # 10.8 K/mcL (1.6-8.9); Platelet Count 130 K/mcL (140-400); Red Blood Count 3.57 M/mcL (3.82-4.97); Red Cell Distribution Width 12.1 % (11.5-14.5); Segmented Neutrophils % 77.7 %
[2017-01-14 06:01] LABS: Calcium 9.6 mg/dL (8.6-10.8); Potassium 3.7 mEq/L (3.5-4.5)
[2017-01-14] MEDS: *HR* Heparin 5,000 UNIT/ML VIAL SQ SCH ×2 (06:28→17:38)
--- NOTE | 2017-01-14 08:11 | Cardiothoracic Progress Note ---
Date of Encounter: 01/14/17 Time of Encounter: 08:09 - Assessment and plan (1) CAD (coronary artery disease) Current Visit: Yes Status: Acute The patient is recovering well from her CABG2. She is breathing comfortably. She will begin ambulating the hallways today. Her renal function is improving. The assessment and plan as outlined above was discussed with the patient and/or family members who expressed understanding and agreement. All questions were answered. Qualifiers: Coronary Disease-Associated Artery/Lesion type: [place] artery [place] vs. transplanted heart: [place] heart Associated angina: with unstable angina Qualified Code(s): I25.110 - Atherosclerotic heart disease of [place] coronary artery with unstable angina pectoris - Subjective Procedure(s) Performed: POD#3 S/P CABG2 Interval history: The patient remained hemodynamically stable overnight. She is breathing comfortably. She has no complaints. Vital Signs, Last 4 Hours Temp Pulse Resp BP Pulse Ox 01/14/17 07:55 97.8 F 76 18 120/74 98 Oxgyen Flow Rate Oxygen Flow Rate (LPM) 2 Weight 01/12/17 01/13/17 01/14/17 23:59 23:59 23:59 Weight 98.51 kg 97.6 kg - Physical Examination General: Conversant, No Apparent Distress Neck: No JVD, Normal carotid pulses Cardiac: Reg Rate and Rhythm, Normal S1 and S2, No Murmur Incision: No signs of infection, Dry/intact dressing Sternum: Stable Pacing Wires: In place Lungs: Normal Breath Sounds, No Wheeze, Rales, Rhonchi Neuro: Alert and responsive, No focal deficits noted Vascular: Normal capillary refill Extremities: No Clubbing, No Cyanosis, No Edema - Labs 01/14/17 04:29 01/14/17 04:29 Lab Results, Last 24 hours 01/14/17 01/14/17 04:29 04:29 WBC 13.9 H Hgb 10.7 L Hct 32.4 L Plt Count 130 L Sodium 138 Potassium 3.7 Chloride 103 Carbon Dioxide 28 BUN 27 H Creatinine 1.61 H Glucose 189 H Calcium 9.6 - VTE Reasons for not Prescribing Prophylaxis: Medical contraindication Documentation of Mechanical Device: Graduated compression elastic hosiery Consult Discharge Plan - Plan Referrals: Hugh Cook DO [Partnered Physician] - 01/31/17 3:00 pm Jaime Danielle MD [Partnered Physician] - 02/16/17 2:40 pm Moreno,Ame Araujo CNP [Primary Care Provider] - (spoke with Jess at [facility] office and she said she would call me back with an appointment on 01-13-17 @[id number])
[2017-01-14] MEDS: FLUoxetine HCl 10 MG CAPSULE PO SCH (08:15)
[2017-01-14] MEDS: Chlorhexidine Rinse 15 ML MOUTHWASH MM SCH ×2 (08:15→19:52)
[2017-01-14] MEDS: Calcium Acetate 667 MG CAPSULE PO SCH ×3 (08:15→17:37)
[2017-01-14] MEDS: Furosemide 20 MG/2 ML VIAL IVP SCH ×2 (08:15→19:52)
[2017-01-14] MEDS: Pantoprazole 40 MG VIAL IVP SCH (08:15)
[2017-01-14] MEDS: Insulin LISPRO 300 UNITS/3 ML VIAL SQ SCH ×4 (08:16→21:32)
[2017-01-14] MEDS: Aspirin Enteric Coated 81 MG Tablet PO SCH (08:16)
[2017-01-14] MEDS: niCARdipine 40 MG/200 ML MLS IVC SCH ×2 (08:17→11:38)
[2017-01-14] MEDS: (Biotin [Biotin] 10,000 MCG) PO SCH (08:18)
--- NOTE | 2017-01-14 09:38 | Internal Med History&Physical ---
Date of Encounter: 01/14/17 Time of Encounter: 09:36 Assessment and Plan (1) CAD (coronary artery disease) Current visit: Yes Status: Acute Status post CABG cardiothoracic surgery following the patient Qualifiers: Coronary Disease-Associated Artery/Lesion type: [place] artery [place] vs. transplanted heart: [place] heart Associated angina: with unstable angina Qualified Code(s): I25.110 - Atherosclerotic heart disease of [place] coronary artery with unstable angina pectoris (2) Acute kidney injury superimposed on chronic kidney disease Current visit: Yes Status: Acute Nephrology following the patient (3) CKD (chronic kidney disease) stage 3, GFR 30-59 ml/min Current visit: Yes Status: Chronic (4) Hypertension Current visit: Yes Status: Ruled-out Qualifiers: Hypertension type: essential hypertension Qualified Code(s): I10 - Essential (primary) hypertension (5) Anemia Current visit: Yes Status: Acute Combination anemia related to chronic kidney disease as well as acute blood loss post procedure Qualifiers: Anemia type: unspecified type Qualified Code(s): D64.9 - Anemia, unspecified (6) Hypothyroidism Current visit: Yes Status: Acute Qualifiers: Hypothyroidism type: unspecified Qualified Code(s): E03.9 - Hypothyroidism , unspecified (7) Dyslipidemia Current visit: Yes Status: Acute Internal Medicine - H&P: HPI Chief complaint: Post CABG Admitted From: Home Plans for Post Hospital Care: Transfer Detention Facility History of present illness: Ms. Mujica is a 56 year old female admitted with coronary artery disease and underwent open heart surgery for coronary artery bypass. Post procedure she developed renal failure And Now She Is in Recovery Process. Patient Denies Any Complaints. Cardiothoracic Surgery and Nephrology Will Continue to Follow Her. It is anticipated that patient will need SNF care post open heart surgery and rehabilitation. We will facilitate that. Past Med Surg Social Fam HX - Past Medical History Medical history: diabetes, hyperlipidemia, hypertension, pulmonary embolus, renal disease Psychiatric history: anxiety - Social History Smoking Status: Never smoker Smokeless Tobacco Status: No Alcohol use: occasionally Drug use: none - Family History Mother Hx Family Cardiac Disorders: No Hx Family Respiratory Disorders: No Hx Family Cancer: No Hx Family GI Disorders: No Hx Family Endocrine Disorder: Yes (thyroid) Hx Family Neuromuscular Disorders: No Hx Family Neurologic Disorders: No Hx Family HEENT Disorders: No Hx Family Autoimmune Disorders: No Father Living Status: Still Living Hx Family Cardiac Disorders: Yes (HLD) Hx Family Respiratory Disorders: No Hx Family Cancer: No Hx Family GI Disorders: No Hx Family Endocrine Disorder: Yes (DM 2) Hx Family Neuromuscular Disorders: No Hx Family Neurologic Disorders: No Hx Family HEENT Disorders: No Hx Family Autoimmune Disorders: No Internal Medicine - H&P: Meds Calcitriol [Rocaltrol] 0.25 mcg PO HS 01/02/17 [History] Cholecalciferol (D-3) [Vitamin D] 5,000 unit PO HS 01/02/17 [History] Isosorbide MONOnitrate (24 HR) [Imdur] 60 mg PO DAILY 01/02/17 [History] Levothyroxine Sodium [Tirosint] 75 mcg PO QAM 01/02/17 [History] Simvastatin [Zocor] 40 mg PO HS 01/02/17 [History] Aspirin 81 mg PO DAILY 01/04/17 [Rx] FLUoxetine HCl [Prozac] 10 mg PO DAILY 01/04/17 [Rx] Metoprolol [Lopressor] 12.5 mg PO BID #60 tab 01/04/17 [Rx] Nitroglycerin 0.4 mg SL Q5MIN PRN 01/04/17 [Rx] Biotin 10,000 mcg PO DAILY 01/11/17 [History] Gabapentin [Neurontin] 600 mg PO HS 01/11/17 [History] Subcutaneous Insulin Pump [T:Slim] 1 each MC AD 01/11/17 [History] 3 Allergy/AdvReac Type Severity Reaction Status Date / Time Penicillins Allergy Hives Verified 01/11/17 07:36 bacitracin AdvReac See Verified 01/11/17 07:36 Comments cephalexin [From Keflex] AdvReac Itching Verified 01/11/17 07:36 All Systems PM: A 10-system review of systems was performed and is negative for pertinent findings except as documented above in the HPI. - Constitutional Constitutional: no chills, no fever(s), no night sweats - EENT Eyes: no change in vision, no discharge, no pain, no photophobia Ears: no ear discharge, no ear pain, no tinnitus Nose, mouth and throat: no dysphagia, no nasal discharge, no neck pain, no sore throat - Cardiovascular Cardiovascular ROS IM: no chest pain, no diaphoresis, no dyspnea, no lightheadedness, no palpitations, no syncope - Respiratory Respiratory: no cough, no dyspnea, no wheezing, no excessive phlegm production - Gastrointestinal Gastrointestinal: no abdominal pain, no diarrhea, no hematemesis, no hematochezia, no melena, no nausea, no vomiting - Genitourinary Genitourinary: no change in urinary stream, no dysuria, no flank pain, no hematuria - Musculoskeletal Musculoskeletal ROS IM: no numbness, no tingling - Integumentary Integumentary IM: no rash, no unusual bruising - Neurological Neurological ROS: no confusion, no convulsions, no focal weakness, no numbness, no tingling, no tremor(s) - Hematologic/Lymphatic Hematologic/Lymphatic: no easy bruising - Constitutional Vitals: Temp Pulse Resp BP Pulse Ox 97.8 F 76 18 120/74 98 01/14/17 07:55 01/14/17 07:55 01/14/17 07:55 01/14/17 07:55 01/14/17 07:55 - Head Head exam: Present: atraumatic, normocephalic - Eye Eye exam: Present: PERRL, conjuntiva pink, sclera anicteric Pupils: Present: PERRL - Neck Neck exam general surgery: Present: supple, trachea midline. Absent: lymphadenopathy - Respiratory Respiratory exam: Present: CTAB. Absent: accessory muscle use, rales, rhonchi, wheezes - Cardiovascular Cardiovascular exam: Present: RRR, +S1, +S2. Absent: diastolic murmur, gallop, rubs, systolic murmur - GI/Abdominal GI/Abdominal exam: Present: normal bowel sounds, soft, no peritoneal signs. Absent: distended, tenderness - Extremities Exam Extremities exam: Present: warm, radial pulses palpable and symmetrical. Absent : calf tenderness, cyanotic, pedal edema - Neurological Exam Neurological exam: Present: CN II-XII intact, oriented X3, no focal deficits. Absent: pronater drift, facial droop, speech deficit - Skin Skin exam: Present: dry, intact Internal Med - H&P Results - Labs CBC & Chem 7: 01/14/17 04:29 01/14/17 04:29 Labs: Short CBC 01/14/17 Range/Units 04:29 WBC 13.9 H (4.3-11.1) K/mcL Hgb 10.7 L (11.5-15.4) g/dL Hct 32.4 L (35.3-44.9) % Plt Count 130 L (140-400) K/mcL Neutrophils # 10.8 H (1.6-8.9) K/mcL BMP 01/14/17 04:29 Sodium 138 Potassium 3.7 Chloride 103 Carbon Dioxide 28 BUN 27 H Creatinine 1.61 H Glucose 189 H Calcium 9.6 - ABG Interpretation ABG results: 01/11/17 01/11/17 01/11/17 08:04 09:27 10:01 ABG pH 7.31 L 7.37 ABG pCO2 59 H 40 ABG pO2 46 L* 93 ABG HCO3 30 H 23 ABG Total CO2 31.5 H 24.3 ABG O2 Saturation 77 L 97 ABG Base Excess 2.1 -2.0 VBG pH 7.39 VBG pCO2 42 VBG pO2 230 H VBG HCO3 25.4 01/11/17 01/11/17 01/11/17 10:05 10:28 10:43 ABG pH 7.42 7.42 ABG pCO2 42 42 ABG pO2 412 H 420 H ABG HCO3 27 27 ABG Total CO2 28.5 H 28.5 H ABG O2 Saturation 100 H 100 H ABG Base Excess 2.5 2.5 VBG pH 7.37 VBG pCO2 46 VBG pO2 45 H VBG HCO3 26.6 01/11/17 01/11/17 01/11/17 11:12 12:50 16:50 ABG pH 7.40 7.46 H 7.41 ABG pCO2 42 34 L 41 ABG pO2 105 H 86 139 H ABG HCO3 26 24 26 ABG Total CO2 27.3 H 25.2 27.3 H ABG O2 Saturation 98 97 99 H ABG Base Excess 1.1 0.6 1.2 VBG pH VBG pCO2 VBG pO2 VBG HCO3 01/11/17 01/11/17 18:42 20:17 ABG pH 7.37 7.34 ABG pCO2 45 46 H ABG pO2 122 H 91 ABG HCO3 26 25 ABG Total CO2 27.4 H 26.2 H ABG O2 Saturation 99 H 97 ABG Base Excess 0.4 -1.2 VBG pH VBG pCO2 VBG pO2 VBG HCO3 - Impressions ITS Impressions Chest X-Ray 01/11/17 12:53 IMPRESSION: 1. Endotracheal tube in place with its tip in the proximal right mainstem bronchus 2. Left lower lobe atelectasis The findings were sent to the Radiology Results Communication Center at 1:22 pm on 01/11/2017to be communicated to a licensed caregiver. D/ / 01/11/2017 13:42:27 Jabari Mckenna MD / [facility] Interpreting Provider: Jabari Mckenna MD X-Ray 01/11/17 12:53 IMPRESSION: OG tube in place with its tip in the region of the gastric fundus and its side hole near the GE junction. D/ / 01/11/2017 13:40:32 Jabari Mckenna MD / [facility] Interpreting Provider: Jabari Mckenna MD Chest X-Ray 01/12/17 04:00 IMPRESSION: There is some improved aeration in the left chest with persistent atelectatic changes in the lungs bilaterally with some vascular congestion. D/ / Dainel Mason MD / Daniel Mason MD Interpreting Provider: Daniel Mason MD Chest X-Ray 01/13/17 06:00 IMPRESSION: 1. Improved pulmonary edema. 2. Stable low lung volumes with bibasilar atelectasis, and a probable small left pleural effusion. D/ / Nilson Vigil MD / Nilson Vigil MD Interpreting Provider: Nilson Vigil MD - VTE Reasons for not Prescribing Prophylaxis: Medical contraindication Documentation of Mechanical Device: Graduated compression elastic hosiery
[2017-01-14] MEDS: (Subcutaneous Insulin Pump [T:Slim] 1 EACH) MC SCH (11:38)
[2017-01-14] MEDS: *HR* OxyCODONE/APAP 5/325 TABLET PO PRN ×2 (13:10→19:51)
--- NOTE | 2017-01-14 16:56 | Nephrology Progress Note ---
Date of Encounter: 01/14/17 Time of Encounter: 16:54 - Assessment and Plan (1) Acute kidney injury superimposed on chronic kidney disease Current Visit: Yes Status: Acute Patient with non-oliguric post surgical acute kidney injury. Hopeful for renal recovery. At this time she does not require renal replacement therapy. (2) CAD (coronary artery disease) Current Visit: Yes Status: Acute Status post CABG. Per primary team. Qualifiers: Coronary Disease-Associated Artery/Lesion type: [place] artery [place] vs. transplanted heart: [place] heart Associated angina: with unstable angina Qualified Code(s): I25.110 - Atherosclerotic heart disease of [place] coronary artery with unstable angina pectoris (3) Anemia Current Visit: Yes Status: Acute Transfuse as needed. Qualifiers: Anemia type: unspecified type Qualified Code(s): D64.9 - Anemia, unspecified (4) Hyperphosphatemia Current Visit: Yes Status: Acute Question if the phosphorus of 14 was real. We will repeat phosphorus level in the morning. (5) Hypertension Current Visit: Yes Status: Ruled-out Blood pressure is controlled. Qualifiers: Hypertension type: essential hypertension Qualified Code(s): I10 - Essential (primary) hypertension Subjective Principal diagnosis: CAIT/CKD Interval history: The patient was seen and evaluated. She is sitting up in a chair comfortable and without complaint. She denies chest pain, states that the pain from her incision is controlled. She denies dyspnea. She reports that her appetite is still depressed, but denies nausea or vomiting. Objective - Vital Signs Vital signs: Vital Signs Temp Pulse Resp BP Pulse Ox 01/14/17 16:13 98.1 F 86 18 150/84 95 01/14/17 15:19 84 01/14/17 12:12 97.7 F 74 18 150/88 01/14/17 11:35 80 01/14/17 11:19 16 98 01/14/17 08:01 16 98 01/14/17 07:55 97.8 F 76 18 120/74 98 01/14/17 07:40 75 01/14/17 06:20 82 01/14/17 03:49 97.8 F 78 18 150/81 99 01/14/17 01:15 72 01/13/17 23:13 98.2 F 78 18 137/65 98 01/13/17 20:52 18 95 01/13/17 20:45 81 01/13/17 19:28 98.6 F 86 20 173/55 96 Intake and Output 01/14/17 01/14/17 01/14/17 07:59 15:59 23:59 Intake Total 800 / 800 600 / 600 Balance 800 / 800 600 / 600 Intake: Oral 800 / 800 600 / 600 Other: Meal Lunch Percent of Meal Consumed 100% Blood Glucose* 199 302 305 - General Appearance General appearance: Present: well-developed, well-nourished, obese EENT: Present: ATNC Neck: Present: supple Additional Comments: Her respirations are not labored. Cardiology: Present: regular rate Neurologic: Present: alert and oriented x3 Psychiatric: Present: mood/affect appropriate - Lab 01/14/17 04:29 01/14/17 04:29 Most recent lab results ABG pH 7.34 pH Units (7.32-7.45) 01/11/17 20:17 ABG pCO2 46 mmHg (35-45) H 01/11/17 20:17 ABG pO2 91 mmHg (85-104) 01/11/17 20:17 ABG HCO3 25 mEq/L (21-27) 01/11/17 20:17 ABG O2 Saturation 97 % (95-98) 01/11/17 20:17 Calcium 9.6 mg/dL (8.6-10.8) 01/14/17 04:29 Phosphorus 3.3 mg/dL (2.3-4.7) D 01/13/17 03:20 Magnesium 1.7 mg/dL (1.6-2.6) 01/13/17 03:20 - VTE Reasons for not Prescribing Prophylaxis: Medical contraindication Documentation of Mechanical Device: Graduated compression elastic hosiery Consult Discharge Plan - Plan Referrals: Hugh Cook DO [Partnered Physician] - 01/31/17 3:00 pm Jaime Danielle MD [Partnered Physician] - 02/16/17 2:40 pm Josh,Ame Araujo CNP [Primary Care Provider] - (spoke with Jess at [facility] office and she said she would call me back with an appointment on 01-13-17 @[phone])
[2017-01-14] MEDS: Cholecalciferol (D-3) 1,000 UNIT TABLET PO SCH (19:51)
[2017-01-14] MEDS: Gabapentin 300 MG CAPSULE PO SCH (19:51)
[2017-01-15] MEDS: *HR* Heparin 5,000 UNIT/ML VIAL SQ SCH ×2 (06:23→17:34)
[2017-01-15] MEDS: *HR* OxyCODONE/APAP 5/325 TABLET PO PRN ×3 (06:27→20:57)
[2017-01-15 07:10] LABS: Calcium 9.7 mg/dL (8.6-10.8); Phosphorous 2.7 mg/dL (2.3-4.7); Potassium 3.6 mEq/L (3.5-4.5)
[2017-01-15 07:11] LABS: Basophils # 0.1 K/mcL (0.0-0.2); Basophils % 0.4 %; Eosinophils # 0.2 K/mcL (0.0-0.6); Eosinophils % 1.3 %; Hematocrit 33.2 % (35.3-44.9); Hemoglobin 10.9 g/dL (11.5-15.4); Immature Granulocytes % 0.4 % (0-4); Lymphocytes # 1.4 K/mcL (0.6-4.6); Lymphocytes % 11.7 %; Mean Corpuscular HGB Conc 32.8 g/dL (31.6-35.5); Mean Corpuscular Hemoglobin 29.5 pg (28.0-33.3); Mean Corpuscular Volume 89.7 fL (83.0-100.0); Mean Platelet Volume 11.6 fL (9.4-12.4); Monocytes # 0.8 K/mcL (0.0-1.3); Neutrophils # 9.3 K/mcL (1.6-8.9); Platelet Count 161 K/mcL (140-400); Segmented Neutrophils % 79.2 %
--- NOTE | 2017-01-15 07:42 | Cardiothoracic Progress Note ---
Date of Encounter: 01/15/17 Time of Encounter: 07:40 - Assessment and plan (1) CAD (coronary artery disease) Current Visit: Yes Status: Acute The patient is recovering well from her CABG2. She is breathing comfortably. She continue ambulating in the hallways today. Her renal function is improving. The assessment and plan as outlined above was discussed with the patient and/or family members who expressed understanding and agreement. All questions were answered. Qualifiers: Coronary Disease-Associated Artery/Lesion type: [place] artery [place] vs. transplanted heart: [place] heart Associated angina: with unstable angina Qualified Code(s): I25.110 - Atherosclerotic heart disease of [place] coronary artery with unstable angina pectoris - Subjective Procedure(s) Performed: POD#4 S/P CABG2 Interval history: The patient remained hemodynamically stable overnight. She is breathing comfortably. She was able to begin walking in the hallways yesterday. She has no complaints. Vital Signs, Last 4 Hours Pulse 01/15/17 03:45 80 Oxgyen Flow Rate Oxygen Flow Rate (LPM) 2 Weight 01/13/17 01/14/17 01/15/17 23:59 23:59 23:59 Weight 97.6 kg 97.7 kg - Physical Examination General: Conversant, No Apparent Distress Neck: No JVD, Normal carotid pulses Cardiac: Reg Rate and Rhythm, Normal S1 and S2, No Murmur Incision: No signs of infection, Dry/intact dressing Sternum: Stable Lungs: Normal Breath Sounds, No Wheeze, Rales, Rhonchi Neuro: Alert and responsive, No focal deficits noted Vascular: Normal capillary refill Extremities: No Clubbing, No Cyanosis, No Edema - Labs 01/15/17 06:46 01/15/17 06:46 Lab Results, Last 24 hours 01/15/17 01/15/17 06:46 06:46 WBC 11.7 H Hgb 10.9 L Hct 33.2 L Plt Count 161 Sodium 136 Potassium 3.6 Chloride 99 Carbon Dioxide 28 BUN 29 H Creatinine 1.44 H Glucose 271 H Calcium 9.7 - VTE Reasons for not Prescribing Prophylaxis: Medical contraindication Documentation of Mechanical Device: Graduated compression elastic hosiery Consult Discharge Plan - Plan Referrals: Hugh Cook DO [Partnered Physician] - 01/31/17 3:00 pm Jaime Danielle MD [Partnered Physician] - 02/16/17 2:40 pm Moreno,Ame Araujo CNP [Primary Care Provider] - (spoke with Jess at [facility] office and she said she would call me back with an appointment on 01-13-17 @[phone])
[2017-01-15] MEDS: Insulin LISPRO 300 UNITS/3 ML VIAL SQ SCH ×4 (07:56→20:59)
[2017-01-15] MEDS: Aspirin Enteric Coated 81 MG Tablet PO SCH (07:57)
[2017-01-15] MEDS: Chlorhexidine Rinse 15 ML MOUTHWASH MM SCH ×2 (07:57→20:58)
[2017-01-15] MEDS: FLUoxetine HCl 10 MG CAPSULE PO SCH (07:57)
[2017-01-15] MEDS: Pantoprazole 40 MG VIAL IVP SCH (07:57)
[2017-01-15] MEDS: (Biotin [Biotin] 10,000 MCG) PO SCH (07:58)
[2017-01-15] MEDS: Calcium Acetate 667 MG CAPSULE PO SCH ×3 (07:58→17:35)
[2017-01-15] MEDS: niCARdipine 40 MG/200 ML MLS IVC SCH (08:25)
[2017-01-15] MEDS: (Subcutaneous Insulin Pump [T:Slim] 1 EACH) MC SCH (13:14)
--- NOTE | 2017-01-15 17:20 | Internal Med Progress Note ---
Date of Encounter: 01/15/17 Time of Encounter: 17:18 - Assessment and plan (1) CAD (coronary artery disease) Current Visit: Yes Status: Acute Qualifiers: Coronary Disease-Associated Artery/Lesion type: [place] artery [place] vs. transplanted heart: [place] heart Associated angina: with unstable angina Qualified Code(s): I25.110 - Atherosclerotic heart disease of [place] coronary artery with unstable angina pectoris (2) Acute kidney injury superimposed on chronic kidney disease Current Visit: Yes Status: Acute (3) CKD (chronic kidney disease) stage 3, GFR 30-59 ml/min Current Visit: Yes Status: Chronic (4) Hypertension Current Visit: Yes Status: Ruled-out Qualifiers: Hypertension type: essential hypertension Qualified Code(s): I10 - Essential (primary) hypertension (5) Anemia Current Visit: Yes Status: Acute Qualifiers: Anemia type: unspecified type Qualified Code(s): D64.9 - Anemia, unspecified (6) Hypothyroidism Current Visit: Yes Status: Acute Qualifiers: Hypothyroidism type: unspecified Qualified Code(s): E03.9 - Hypothyroidism , unspecified (7) Dyslipidemia Current Visit: Yes Status: Acute (8) Diabetes Current Visit: Yes Status: Acute Qualifiers: Diabetes mellitus type: type 2 Diabetes mellitus complication status: with kidney complications Diabetes mellitus complication detail: with chronic kidney disease Diabetes mellitus detention insulin use: with detention use Chronic kidney disease stage: stage 3 (moderate) Qualified Code(s): E11.22 - Type 2 diabetes mellitus with diabetic chronic kidney disease; N18.3 - Chronic kidney disease, stage 3 (moderate); Z79.4 - jail (current) use of insulin - Subjective Interval history: Mrs. Katherine Mujica 56 years old female status post CABG. She was transferred from ICU to [facility]. She seems to be doing well has already started ambulating and her white Cell count is going down as well as creatinine. Her blood sugars are elevated therefore I will start her on Levemir 20 units at night with sliding scale coverage. Continue following her CBC and CMP. Cardiothoracic nephrology also following her. - Constitutional Vitals: Temp Pulse Resp BP Pulse Ox 97.7 F 78 18 136/73 96 01/15/17 15:07 01/15/17 15:07 01/15/17 16:07 01/15/17 15:07 01/15/17 16:07 General appearance: Present: A&O X 3, no acute distress, answers questions appropriately - Head Head exam: Present: atraumatic, normocephalic - Eye Eye exam: Present: PERRL, conjuntiva pink, sclera anicteric Pupils: Present: PERRL - Neck Neck exam general surgery: Present: supple, trachea midline. Absent: lymphadenopathy - Respiratory Respiratory exam: Present: CTAB. Absent: accessory muscle use, rales, rhonchi, wheezes - Cardiovascular Cardiovascular exam: Present: RRR, +S1, +S2. Absent: diastolic murmur, gallop, rubs, systolic murmur - GI/Abdominal GI/Abdominal exam: Present: normal bowel sounds, soft, no peritoneal signs. Absent: distended, tenderness - Extremities Exam Extremities exam: Present: warm, radial pulses palpable and symmetrical. Absent : calf tenderness, cyanotic, pedal edema - Neurological Exam Neurological exam: Present: CN II-XII intact, oriented X3, no focal deficits. Absent: pronater drift, facial droop, speech deficit - Skin Skin exam: Present: dry, intact Internal Medicine: Result - Labs CBC & Chem 7: 01/15/17 06:46 01/15/17 06:46 Labs: Short CBC 01/15/17 Range/Units 06:46 WBC 11.7 H (4.3-11.1) K/mcL Hgb 10.9 L (11.5-15.4) g/dL Hct 33.2 L (35.3-44.9) % Plt Count 161 (140-400) K/mcL Neutrophils # 9.3 H (1.6-8.9) K/mcL BMP 01/15/17 06:46 Sodium 136 Potassium 3.6 Chloride 99 Carbon Dioxide 28 BUN 29 H Creatinine 1.44 H Glucose 271 H Calcium 9.7 - ABG Interpretation ABG results: ABG ABG pH 7.34 pH Units (7.32-7.45) 01/11/17 20:17 ABG pCO2 46 mmHg (35-45) H 01/11/17 20:17 ABG pO2 91 mmHg (85-104) 01/11/17 20:17 ABG O2 Saturation 97 % (95-98) 01/11/17 20:17 PT/INR, D-dimer PT 12.7 Seconds (9.4-12.1) H 01/12/17 03:30 - VTE Reasons for not Prescribing Prophylaxis: Medical contraindication Documentation of Mechanical Device: Graduated compression elastic hosiery Consult Discharge Plan - Plan Referrals: Hugh Cook DO [Partnered Physician] - 01/31/17 3:00 pm Jaime Danielle MD [Partnered Physician] - 02/16/17 2:40 pm Moreno,Ame Araujo CNP [Primary Care Provider] - (spoke with Jess at [facility] office and she said she would call me back with an appointment on 01-13-17 @[phone])
[2017-01-15] MEDS: Cholecalciferol (D-3) 1,000 UNIT TABLET PO SCH (20:58)
[2017-01-15] MEDS: Gabapentin 300 MG CAPSULE PO SCH (20:58)
[2017-01-15] MEDS ORDERED: Insulin DETEMIR 100 UNIT/ML X5UNITS SQ SCH (21:00)
[2017-01-16 03:38] LABS: Basophils # 0.1 K/mcL (0.0-0.2); Basophils % 0.6 %; Eosinophils # 0.4 K/mcL (0.0-0.6); Eosinophils % 3.6 %; Hematocrit 30.7 % (35.3-44.9); Hemoglobin 10.1 g/dL (11.5-15.4); Immature Granulocytes % 0.5 % (0-4); Lymphocytes # 2.6 K/mcL (0.6-4.6); Lymphocytes % 24.9 %; Mean Corpuscular HGB Conc 32.9 g/dL (31.6-35.5); Mean Corpuscular Hemoglobin 29.8 pg (28.0-33.3); Mean Corpuscular Volume 90.6 fL (83.0-100.0); Mean Platelet Volume 11.1 fL (9.4-12.4); Monocytes # 0.9 K/mcL (0.0-1.3); Monocytes % 8.7 %; Neutrophils # 6.6 K/mcL (1.6-8.9); Platelet Count 155 K/mcL (140-400); Red Blood Count 3.39 M/mcL (3.82-4.97); Red Cell Distribution Width 12.2 % (11.5-14.5); Segmented Neutrophils % 61.7 %
[2017-01-16 03:54] LABS: Calcium 9.6 mg/dL (8.6-10.8); Potassium 3.5 mEq/L (3.5-4.5)
[2017-01-16] MEDS: *HR* Heparin 5,000 UNIT/ML VIAL SQ SCH ×2 (06:31→16:41)
[2017-01-16] MEDS: Pantoprazole 40 MG VIAL IVP SCH (08:21)
[2017-01-16] MEDS: Calcium Acetate 667 MG CAPSULE PO SCH (08:21)
[2017-01-16] MEDS: FLUoxetine HCl 10 MG CAPSULE PO SCH (08:22)
[2017-01-16] MEDS: Insulin LISPRO 300 UNITS/3 ML VIAL SQ SCH ×2 (08:23→11:43)
[2017-01-16] MEDS: (Biotin [Biotin] 10,000 MCG) PO SCH (08:23)
[2017-01-16] MEDS: Chlorhexidine Rinse 15 ML MOUTHWASH MM SCH ×2 (08:23→20:59)
[2017-01-16] MEDS: Aspirin Enteric Coated 81 MG Tablet PO SCH (08:23)
--- NOTE | 2017-01-16 08:35 | Cardiothoracic Progress Note ---
Date of Encounter: 01/16/17 Time of Encounter: 08:34 - Assessment and plan (1) CAD (coronary artery disease) Current Visit: Yes Status: Acute The patient is recovering well from her CABG2. She is breathing comfortably. She will continue ambulating in the hallways today. Her renal function is improving. The assessment and plan as outlined above was discussed with the patient and/or family members who expressed understanding and agreement. All questions were answered. Qualifiers: Coronary Disease-Associated Artery/Lesion type: [place] artery [place] vs. transplanted heart: [place] heart Associated angina: with unstable angina Qualified Code(s): I25.110 - Atherosclerotic heart disease of [place] coronary artery with unstable angina pectoris - Subjective Procedure(s) Performed: POD#5 S/P CABG2 Interval history: The patient remained hemodynamically stable overnight. She is breathing comfortably. She has no complaints. Vital Signs, Last 4 Hours Temp Pulse Resp BP Pulse Ox 01/16/17 07:39 98.1 F 72 16 122/69 96 01/16/17 05:04 98.1 F 76 18 122/75 94 Oxgyen Flow Rate Oxygen Flow Rate (LPM) 0 Weight 01/14/17 01/15/17 01/16/17 23:59 23:59 23:59 Weight 97.7 kg 98.9 kg - Physical Examination General: Conversant Neck: No JVD, Normal carotid pulses Cardiac: Reg Rate and Rhythm, Normal S1 and S2, No Murmur Incision: No signs of infection, Dry/intact dressing Sternum: Stable Lungs: Normal Breath Sounds, No Wheeze, Rales, Rhonchi Neuro: Alert and responsive, No focal deficits noted Vascular: Normal capillary refill Extremities: No Clubbing, No Cyanosis, No Edema - Labs 01/16/17 03:20 01/16/17 03:20 Lab Results, Last 24 hours 01/16/17 01/16/17 03:20 03:20 WBC 10.6 Hgb 10.1 L Hct 30.7 L Plt Count 155 Sodium 137 Potassium 3.5 Chloride 102 Carbon Dioxide 29 BUN 28 H Creatinine 1.38 H Glucose 139 H Calcium 9.6 - VTE Reasons for not Prescribing Prophylaxis: Medical contraindication Documentation of Mechanical Device: Graduated compression elastic hosiery Consult Discharge Plan - Plan Referrals: Hugh Cook DO [Partnered Physician] - 01/31/17 3:00 pm Jaime Danielle MD [Partnered Physician] - 02/16/17 2:40 pm Moreno,Ame Araujo CNP [Primary Care Provider] - (spoke with Jess at [facility] office and she said she would call me back with an appointment on 01-13-17 @[phone])
--- NOTE | 2017-01-16 10:45 | Nephrology Progress Note ---
Date of Encounter: 01/16/17 Time of Encounter: 10:41 - Assessment and Plan (1) Acute kidney injury superimposed on chronic kidney disease Current Visit: Yes Status: Acute Patient with non-oliguric post surgical acute kidney injury. Renal function is back to baseline. Avoid nephrotoxins. Patient should follow-up with Dr. Guillen 4-8 weeks after discharge with a BMP 1-2 weeks prior to clinic visit. Will sign off. Please call if questions or concerns. (2) CAD (coronary artery disease) Current Visit: Yes Status: Acute Status post CABG. Per primary team/CTS. Qualifiers: Coronary Disease-Associated Artery/Lesion type: [place] artery [place] vs. transplanted heart: [place] heart Associated angina: with unstable angina Qualified Code(s): I25.110 - Atherosclerotic heart disease of [place] coronary artery with unstable angina pectoris (3) Anemia Current Visit: Yes Status: Acute Transfuse as needed. Qualifiers: Anemia type: unspecified type Qualified Code(s): D64.9 - Anemia, unspecified (4) Hyperphosphatemia Current Visit: Yes Status: Acute Phosphorus of 14 was a lab error. Will discontinue phosphate binder. (5) Hypertension Current Visit: Yes Status: Ruled-out Blood pressure is controlled. Qualifiers: Hypertension type: essential hypertension Qualified Code(s): I10 - Essential (primary) hypertension Subjective Principal diagnosis: CAIT/CKD Interval history: The patient was seen and evaluated. She is sitting up in a chair comfortable and without complaint. She denies chest pain, states that the pain from her incision is controlled. She denies dyspnea. She states she has been crying from watching "Dr. Gupta". Objective - Vital Signs Vital signs: Vital Signs Temp Pulse Resp BP Pulse Ox 01/16/17 08:20 97.9 F 68 19 122/69 01/16/17 07:39 98.1 F 72 16 122/69 96 01/16/17 05:04 98.1 F 76 18 122/75 94 01/16/17 04:25 70 01/15/17 23:30 87 01/15/17 23:22 98.1 F 72 18 134/71 94 01/15/17 20:50 97.5 F L 79 18 127/88 98 01/15/17 20:45 76 01/15/17 19:54 18 96 01/15/17 16:07 18 96 01/15/17 15:07 97.7 F 78 17 136/73 95 01/15/17 15:00 74 01/15/17 12:16 97.6 F 80 19 140/74 96 01/15/17 11:16 18 95 01/15/17 11:00 77 Intake and Output 01/15/17 01/16/17 01/16/17 23:59 07:59 15:59 Intake Total 180 / 180 240 / 240 Output Total 0 / 0 Balance 180 / 180 240 / 240 Intake: Oral 180 / 180 240 / 240 Output: Urine 0 / 0 Other: Meal Breakfast Percent of Meal Consumed 100% # Urine Diapers 1 Weight 98.9 kg Blood Glucose* 170 207 Patient Weight 01/16/17 23:59 Weight 98.9 kg - General Appearance General appearance: Present: well-developed, well-nourished, obese EENT: Present: ATNC Neck: Present: supple Additional Comments: Respirations are unlabored. Cardiology: Present: regular rate Integumentary: Present: warm and dry Neurologic: Present: alert and oriented x3 Psychiatric: Present: mood/affect appropriate - Lab 01/16/17 03:20 01/16/17 03:20 Most recent lab results ABG pH 7.34 pH Units (7.32-7.45) 01/11/17 20:17 ABG pCO2 46 mmHg (35-45) H 01/11/17 20:17 ABG pO2 91 mmHg (85-104) 01/11/17 20:17 ABG HCO3 25 mEq/L (21-27) 01/11/17 20:17 ABG O2 Saturation 97 % (95-98) 01/11/17 20:17 Calcium 9.6 mg/dL (8.6-10.8) 01/16/17 03:20 Phosphorus 2.7 mg/dL (2.3-4.7) 01/15/17 06:46 Magnesium 1.7 mg/dL (1.6-2.6) 01/13/17 03:20 - VTE Reasons for not Prescribing Prophylaxis: Medical contraindication Documentation of Mechanical Device: Graduated compression elastic hosiery Consult Discharge Plan - Plan Referrals: Hugh Cook DO [Partnered Physician] - 01/31/17 3:00 pm Jaime Danielle MD [Partnered Physician] - 02/16/17 2:40 pm Moreno,Ame Araujo CNP [Primary Care Provider] - 01/18/17 10:00 am ()
[2017-01-16] MEDS: (Subcutaneous Insulin Pump [T:Slim] 1 EACH) MC SCH (11:30)
[2017-01-16] MEDS: *HR* OxyCODONE/APAP 5/325 TABLET PO PRN ×2 (11:37→21:00)
--- NOTE | 2017-01-16 18:03 | Internal Med Progress Note ---
Date of Encounter: 01/16/17 Time of Encounter: 18:01 - Assessment and plan (1) CAD (coronary artery disease) Current Visit: Yes Status: Acute Qualifiers: Coronary Disease-Associated Artery/Lesion type: [place] artery [place] vs. transplanted heart: [place] heart Associated angina: with unstable angina Qualified Code(s): I25.110 - Atherosclerotic heart disease of [place] coronary artery with unstable angina pectoris (2) Acute kidney injury superimposed on chronic kidney disease Current Visit: Yes Status: Acute (3) CKD (chronic kidney disease) stage 3, GFR 30-59 ml/min Current Visit: Yes Status: Chronic (4) Hypertension Current Visit: Yes Status: Ruled-out Qualifiers: Hypertension type: essential hypertension Qualified Code(s): I10 - Essential (primary) hypertension (5) Anemia Current Visit: Yes Status: Acute Qualifiers: Anemia type: unspecified type Qualified Code(s): D64.9 - Anemia, unspecified (6) Hypothyroidism Current Visit: Yes Status: Acute Qualifiers: Hypothyroidism type: unspecified Qualified Code(s): E03.9 - Hypothyroidism , unspecified (7) Dyslipidemia Current Visit: Yes Status: Acute (8) Diabetes Current Visit: Yes Status: Acute Qualifiers: Diabetes mellitus type: type 2 Diabetes mellitus complication status: with kidney complications Diabetes mellitus complication detail: with chronic kidney disease Diabetes mellitus skilled nursing insulin use: with skilled nursing use Chronic kidney disease stage: stage 3 (moderate) Qualified Code(s): E11.22 - Type 2 diabetes mellitus with diabetic chronic kidney disease; N18.3 - Chronic kidney disease, stage 3 (moderate); Z79.4 - USP (current) use of insulin - Subjective Interval history: Mrs. Katherine Mujica 56 years old female status post CABG. She was transferred from ICU to [facility]. She seems to be doing well has already started ambulating and her white Cell count is going down as well as creatinine. Her blood sugars are elevated however she has an insulin pump. We tried to give her supplemental insulin versus readjusting her insulin pump but she is not letting us do it. Her ideal blood sugar should be around 100 -120 postop Continue following her CBC and CMP. Cardiothoracic nephrology also following her. [facility] 2. - Constitutional Vitals: Temp Pulse Resp BP Pulse Ox 97.3 F L 74 16 135/73 96 01/16/17 15:22 01/16/17 15:22 01/16/17 16:24 01/16/17 15:22 01/16/17 16:24 General appearance: Present: A&O X 3, no acute distress, answers questions appropriately - Head Head exam: Present: atraumatic, normocephalic - Eye Eye exam: Present: PERRL, conjuntiva pink, sclera anicteric Pupils: Present: PERRL - Neck Neck exam general surgery: Present: supple, trachea midline. Absent: lymphadenopathy - Respiratory Respiratory exam: Present: CTAB. Absent: accessory muscle use, rales, rhonchi, wheezes - Cardiovascular Cardiovascular exam: Present: RRR, +S1, +S2. Absent: diastolic murmur, gallop, rubs, systolic murmur - GI/Abdominal GI/Abdominal exam: Present: normal bowel sounds, soft, no peritoneal signs. Absent: distended, tenderness - Extremities Exam Extremities exam: Present: warm, radial pulses palpable and symmetrical. Absent : calf tenderness, cyanotic, pedal edema - Neurological Exam Neurological exam: Present: CN II-XII intact, oriented X3, no focal deficits. Absent: pronater drift, facial droop, speech deficit - Skin Skin exam: Present: dry, intact Internal Medicine: Result - Labs CBC & Chem 7: 01/16/17 03:20 01/16/17 03:20 Labs: Short CBC 01/16/17 Range/Units 03:20 WBC 10.6 (4.3-11.1) K/mcL Hgb 10.1 L (11.5-15.4) g/dL Hct 30.7 L (35.3-44.9) % Plt Count 155 (140-400) K/mcL Neutrophils # 6.6 (1.6-8.9) K/mcL BMP 01/16/17 03:20 Sodium 137 Potassium 3.5 Chloride 102 Carbon Dioxide 29 BUN 28 H Creatinine 1.38 H Glucose 139 H Calcium 9.6 - ABG Interpretation ABG results: ABG ABG pH 7.34 pH Units (7.32-7.45) 01/11/17 20:17 ABG pCO2 46 mmHg (35-45) H 01/11/17 20:17 ABG pO2 91 mmHg (85-104) 01/11/17 20:17 ABG O2 Saturation 97 % (95-98) 01/11/17 20:17 PT/INR, D-dimer PT 12.7 Seconds (9.4-12.1) H 01/12/17 03:30 - VTE Reasons for not Prescribing Prophylaxis: Medical contraindication Documentation of Mechanical Device: Graduated compression elastic hosiery Consult Discharge Plan - Plan Referrals: Hugh Cook DO [Partnered Physician] - 01/31/17 3:00 pm Jaime Danielle MD [Partnered Physician] - 02/16/17 2:40 pm Moreno,Ame Araujo CNP [Primary Care Provider] - 01/18/17 10:00 am ()
[2017-01-16] MEDS: Cholecalciferol (D-3) 1,000 UNIT TABLET PO SCH (20:58)
[2017-01-16] MEDS: Gabapentin 300 MG CAPSULE PO SCH (20:59)
[2017-01-17] MEDS: *HR* OxyCODONE/APAP 5/325 TABLET PO PRN (02:40)
[2017-01-17 06:39] LABS: Calcium 9.2 mg/dL (8.6-10.8); Potassium 4.4 mEq/L (3.5-4.5)
[2017-01-17 07:15] VITALS: BP 131/82
--- NOTE | 2017-01-17 07:58 | Discharge Summary ---
Date of Encounter: 01/17/17 Time of Encounter: 07:51 - Discharge Diagnosis (1) CAD (coronary artery disease) Priority: Primary Status: Acute Qualifiers: Coronary Disease-Associated Artery/Lesion type: [place] artery [place] vs. transplanted heart: [place] heart Associated angina: with unstable angina Qualified Code(s): I25.110 - Atherosclerotic heart disease of [place] coronary artery with unstable angina pectoris - Discharge Medications Prescriptions: OxyCODONE/APAP 5/325 [Percocet 5/325 MG] 1 each PO Q4HR PRN #42 tab PRN Reason: Severe Pain Home Medications: Calcitriol [Rocaltrol] 0.25 mcg PO HS 01/02/17 [History] Cholecalciferol (D-3) [Vitamin D] 5,000 unit PO HS 01/02/17 [History] Levothyroxine Sodium [Tirosint] 75 mcg PO QAM 01/02/17 [History] Simvastatin [Zocor] 40 mg PO HS 01/02/17 [History] Aspirin 81 mg PO DAILY 01/04/17 [Rx] FLUoxetine HCl [Prozac] 10 mg PO DAILY 01/04/17 [Rx] Metoprolol [Lopressor] 12.5 mg PO BID #60 tab 01/04/17 [Rx] Nitroglycerin 0.4 mg SL Q5MIN PRN 01/04/17 [Rx] Biotin 10,000 mcg PO DAILY 01/11/17 [History] Gabapentin [Neurontin] 600 mg PO HS 01/11/17 [History] Subcutaneous Insulin Pump [T:Slim] 1 each MC AD 01/11/17 [History] OxyCODONE/APAP 5/325 [Percocet 5/325 MG] 1 each PO Q4HR PRN #42 tab 01/17/17 [Rx ] Allergies/Adverse Reactions: 3 Allergy/AdvReac Type Severity Reaction Status Date / Time Penicillins Allergy Hives Verified 01/11/17 07:36 bacitracin AdvReac See Verified 01/11/17 07:36 Comments cephalexin [From Keflex] AdvReac Itching Verified 01/11/17 07:36 Date of admission: 01/11/17 08:22 Primary care physician: Ame Moreno CNP Consults: 01/11/17 12:53 Consult to Cardiac Rehabilitation-Phase1 [CONS] Routine Comment: Reason for Consult: Post open heart Call Completed: Yes 01/12/17 13:22 Consult to [employer] Driver [CONS] Routine Comment: Reason for Consult: uses insulin pump. help to restart Procedure(s) Performed: 1. CABG 2 (Free TIDWELL to LAD, SVG to PDA) performed January 11, 2017. 2. Endoscopic vein harvesting, greater saphenous vein from left lower extremity performed January 11, 2017. Discharging clinician: Jaime Danielle Anticipated date of discharge: 01/17/17 - Patient Status Disposition: Home, Self-Care Condition: Good Functional capacity at discharge: independent ambulation Overall status at discharge: patient is progressing back to baseline - Discharge Instructions Follow Up With: Hugh Cook DO [Partnered Physician] - 01/31/17 3:00 pm Jaime Danielle MD [Partnered Physician] - 02/16/17 2:40 pm Josh,Ame Araujo CNP [Primary Care Provider] - 01/18/17 10:00 am () - Diet and Activity Activity: sternal precautions, no driving for four weeks, no lifting greater than 10 pounds for eight weeks Diet: diabetic diet - Hospital Course Hospital course: Ms. Mujica is a 56 year old type I diabetic, hypertensive, moderately obese lady with exertional angina. She was initially seen by my partner, Dr. Oj Duarte , on January 03, 2017 at [facility] after her cardiac catheterization. Her cardiac symptoms began approximately 4 weeks ago and were described as exertional, nonradiating substernal chest pain without shortness of breath or other associated symptoms. 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 The sternal chest pain will resolve quickly with rest; however, would recur shortly after resuming her activity. She mentioned these symptoms to her primary care provider who referred her for cardiac workup. She underwent a transthoracic echocardiogram which revealed an LVEF 60% with normal left ventricular size and systolic function. She also had evidence of moderate diastolic ventricular dysfunction with elevated filling pressures. An exercise nuclear stress test revealed distal anterior and anterolateral wall infarction with trevin-infarct ischemia. Subsequent cardiac catheterization revealed severe 3 vessel CAD and an LVEF 50%. In particular, she had an 80% mid LAD lesion, an 80% proximal D1 lesion, an 80% proximal LCx lesion, a 90% proximal OM1 lesion (small vessel), 80% mid RCA lesion, and a 90% distal RCA lesion. The patient underwent CABG 2 on January 11, 2017. Postoperatively she had a transient rise in her serum creatinine and a decrease in her GFR; however, these returned to her baseline. She was ambulating in the hallways without difficulty. She was discharged home on POD#6. - Time Spent with Patient Total time spent providing and/or coordinating discharge services: Physical Examination Vital Signs, Last 4 Hours Temp Pulse Resp BP Pulse Ox 01/17/17 07:10 97.9 F 73 16 131/82 96 01/17/17 04:00 78 01/17/17 03:59 97.6 F 78 17 126/59 95 General: Conversant, No Apparent Distress HEENT: Atraumatic, Normocephaly, Trachea midline Neck: No JVD, Normal carotid pulses Cardiac: Reg Rate and Rhythm, Normal S1 and S2, No Murmur Lungs: Normal Breath Sounds, No Wheeze, Rales, Rhonchi Neuro: Alert and responsive, No focal deficits noted Vascular: Normal capillary refill Abdomen: Soft, Non-tender Extremities: No Clubbing, No Cyanosis, No Edema Other: Sternotomy incision is healing well. Sternum stable to both deep breathing and coughing. Open Heart Registry Aspirin Cont/Prescribed at DC: Yes Beta [place] Cont/Prescribed at DC: Yes Statin Cont/Prescribed at DC: Yes PARAG/ARB Cont/Prescribed at DC: Not indicated (LVEF greater than 60%. CKD, Stage IIIa) - VTE Reasons for not Prescribing Prophylaxis: Medical contraindication Documentation of Mechanical Device: Graduated compression elastic hosiery
[2017-01-17] MEDS: *HR* Heparin 5,000 UNIT/ML VIAL SQ SCH (09:06)
[2017-01-17] MEDS: Pantoprazole 40 MG VIAL IVP SCH (09:06)
[2017-01-17] MEDS: Chlorhexidine Rinse 15 ML MOUTHWASH MM SCH (09:06)
[2017-01-17] MEDS: Aspirin Enteric Coated 81 MG Tablet PO SCH (09:07)
[2017-01-17] MEDS: FLUoxetine HCl 10 MG CAPSULE PO SCH (09:07)
--- NOTE | 2017-01-17 20:15 | Internal Med Progress Note ---
Date of Encounter: 01/17/17 Time of Encounter: 09:00 - Assessment and plan (1) CAD (coronary artery disease) Status: Acute Assessment and plan: Status post CABG. She was cleared by cardiothoracic surgery for discharge. Close outpatient follow-up. Qualifiers: Coronary Disease-Associated Artery/Lesion type: [place] artery [place] vs. transplanted heart: [place] heart Associated angina: with unstable angina Qualified Code(s): I25.110 - Atherosclerotic heart disease of [place] coronary artery with unstable angina pectoris (2) Diabetes Status: Acute Assessment and plan: I have educated patient regarding importance of compliance with diet and insulin therapy. She will check blood glucose fingersticks 4 times daily and take her glucometer to her next PCP visit. She will continue with insulin pump and add basal insulin infusion. Follow up closely with endocrinology SCIENTIFIC AIDE. Qualifiers: Diabetes mellitus type: type 2 Diabetes mellitus complication status: with kidney complications Diabetes mellitus complication detail: with chronic kidney disease Diabetes mellitus half-way insulin use: with buttermaker continuous churn use Chronic kidney disease stage: stage 3 (moderate) Qualified Code(s): E11.22 - Type 2 diabetes mellitus with diabetic chronic kidney disease; N18.3 - Chronic kidney disease, stage 3 (moderate); Z79.4 - shelter (current) use of insulin (3) Hypothyroidism Status: Acute Assessment and plan: Follow-up with PCP. Qualifiers: Hypothyroidism type: unspecified Qualified Code(s): E03.9 - Hypothyroidism , unspecified (4) CKD (chronic kidney disease) stage 3, GFR 30-59 ml/min Status: Chronic (5) Hypertension Status: Ruled-out Qualifiers: Hypertension type: essential hypertension Qualified Code(s): I10 - Essential (primary) hypertension - Subjective Interval history: Patient is status post CABG. Denies chest pain and shortness of breath. She has poor diabetes control and I have spent ample time educating her about diet and insulin use. - Constitutional Vitals: Temp Pulse Resp BP Pulse Ox 97.9 F 69 16 131/82 96 01/17/17 07:10 01/17/17 09:10 01/17/17 08:00 01/17/17 07:10 01/17/17 08:00 General appearance: Present: A&O X 3, no acute distress, answers questions appropriately - Respiratory Respiratory exam: Present: CTAB. Absent: accessory muscle use, rales, rhonchi, wheezes - Cardiovascular Cardiovascular exam: Present: RRR, +S1, +S2. Absent: diastolic murmur, gallop, rubs, systolic murmur - GI/Abdominal GI/Abdominal exam: Present: normal bowel sounds, soft, no peritoneal signs. Absent: distended, tenderness Internal Medicine: Result - Labs CBC & Chem 7: 01/16/17 03:20 01/17/17 05:38 Labs: BMP 01/17/17 05:38 Sodium 133 L Potassium 4.4 Chloride 99 Carbon Dioxide 21 BUN 30 H Creatinine 1.51 H Glucose 336 H Calcium 9.2 - ABG Interpretation ABG results: ABG ABG pH 7.34 pH Units (7.32-7.45) 01/11/17 20:17 ABG pCO2 46 mmHg (35-45) H 01/11/17 20:17 ABG pO2 91 mmHg (85-104) 01/11/17 20:17 ABG O2 Saturation 97 % (95-98) 01/11/17 20:17 PT/INR, D-dimer PT 12.7 Seconds (9.4-12.1) H 01/12/17 03:30 - VTE Reasons for not Prescribing Prophylaxis: Medical contraindication Documentation of Mechanical Device: Graduated compression elastic hosiery Consult Discharge Plan - Plan Instructions: Coronary Artery Bypass Graft (DC) Additional Instructions: If you have questions that are not answered by these instructions, please call your nurse or doctor. * Do not drive for 1 month or until allowed by your surgeon. * If you smoke, STOP SMOKING. Smoking or tobacco use significantly increases your risk of heart disease because nicotine causes the arteries to narrow or constrict. It also causes fats to stick to the artery. Your chances of occluding your new bypasses or having a heart attack are greatly increased if you continue to smoke. For more information call the patient education line for smoking cessation 9-734-VLAD-NOW. * Continue to use your incentive Spirometry about 6 times each day (1 use = 5 to 10 breaths) for 1 month. This important to help prevent pneumonia. * Follow your Phase I Cardiac Rehab Activity Guide. * You may climb stairs, one step at a time, as you are able. * Do not lift more than 10 pounds (1/2 gallon of milk = 5 pounds), vacuum, sweep , shovel snow, rake leaves, or do anything that could pull on the chest for 2 months. * You may resume sexual activity when you feel ready. * Continue to wear RENETTA hose during the day for about 1 month. Remove and wash daily in mild detergent. * Gently wash incision with soap and water daily. Rinse well and pat dry with a clean towel. Do not soak your incisions under water. Do not use any powders, lotions, creams or ointments on your incision. * Chest tube sites may drain fluid for 1-2 weeks and can be covered with dry gauze. They also may become reddened or inflamed as they heal and can be cleaned twice a day with hydrogen peroxide. * Take your pulse once a day. If it is less than 60 or greater than 110 beats per minute at rest, call your Residential Program Director. * Take your temperature by mouth once a day for 2 weeks. Call your surgeon of it is above 101 degrees. * Call the surgeon if you notice drainage or redness at your incision lines. * Weigh yourself each day for 2 weeks. Call your doctor if you notice and increase in your weight of 3 pounds or more in a day or increasing shortness of breath. * If you experience chest pain, shortness of breath, dizziness or extreme tiredness, stop and rest. Please notify your doctor if you experience any of these symptoms. * If you experience any of these symptoms and they are not relieved with rest, please call 911. Referrals: Hugh Cook DO [Partnered Physician] - 01/31/17 3:00 pm Jaime Danielle MD [Partnered Physician] - 02/16/17 2:40 pm Ame Moreno CNP [Primary Care Provider] - 01/18/17 10:00 am () Prescriptions: OxyCODONE/APAP 5/325 [Percocet 5/325 MG] 1 each PO Q4HR PRN #42 tab PRN Reason: Severe Pain
[2017-01-24 12:30] LABS: ABG Base Excess 4.1 mEq/L (-2.0 to 3.0); ABG Glucose 103 mg/dL (60-95); ABG HCO3 29 mEq/L (21-27); ABG Ionized Calcium 1.11 mmol/L (1.15-1.35); ABG Oxygen Saturation 97 % (95-98); ABG PCO2 41 mmHg (35-45); ABG PH 7.45 pH Units (7.32-7.45); ABG PO2 90 mmHg (85-104); ABG TCO2 30 mEq/L (20-26)
[2017-01-24 12:32] LABS: ABG HCO3 28 mEq/L (21-27); ABG PCO2 44 mmHg (35-45); ABG PH 7.41 pH Units (7.32-7.45); ABG PO2 414 mmHg (85-104)
[2017-01-24 12:33] LABS: ABG Base Excess 2.8 mEq/L (-2.0 to 3.0); ABG Glucose 133 mg/dL (60-95); ABG Oxygen Saturation 100 % (95-98); ABG TCO2 29 mEq/L (20-26)
[2017-01-24 12:35] LABS: ABG Base Excess 3.1 mEq/L (-2.0 to 3.0); ABG Glucose 184 mg/dL (60-95); ABG HCO3 28 mEq/L (21-27); ABG Oxygen Saturation 100 % (95-98); ABG PCO2 43 mmHg (35-45); ABG PH 7.42 pH Units (7.32-7.45); ABG PO2 352 mmHg (85-104); ABG TCO2 29 mEq/L (20-26)
[2017-01-24 12:36] LABS: ABG Ionized Calcium 1.01 mmol/L (1.15-1.35)
[2017-01-24 12:38] LABS: ABG Base Excess 4.1 mEq/L (-2.0 to 3.0); ABG Glucose 132 mg/dL (60-95); ABG HCO3 29 mEq/L (21-27); ABG Ionized Calcium 0.97 mmol/L (1.15-1.35); ABG Oxygen Saturation 100 % (95-98); ABG PCO2 46 mmHg (35-45); ABG PH 7.41 pH Units (7.32-7.45); ABG PO2 335 mmHg (85-104); ABG TCO2 31 mEq/L (20-26)
[2017-01-24 12:42] LABS: ABG Base Excess 4.6 mEq/L (-2.0 to 3.0); ABG Glucose 125 mg/dL (60-95); ABG HCO3 30 mEq/L (21-27); ABG Oxygen Saturation 100 % (95-98); ABG PCO2 47 mmHg (35-45); ABG PH 7.41 pH Units (7.32-7.45); ABG PO2 365 mmHg (85-104); ABG TCO2 31 mEq/L (20-26)
[2017-01-24 12:43] LABS: ABG Ionized Calcium 0.98 mmol/L (1.15-1.35)
[2017-01-24 12:46] LABS: ABG HCO3 30 mEq/L (21-27); ABG PCO2 47 mmHg (35-45); ABG PH 7.41 pH Units (7.32-7.45); ABG PO2 383 mmHg (85-104); ABG TCO2 31 mEq/L (20-26)
[2017-01-24 12:47] LABS: ABG Base Excess 4.5 mEq/L (-2.0 to 3.0); ABG Glucose 105 mg/dL (60-95); ABG Oxygen Saturation 100 % (95-98)
[2017-01-24 12:48] LABS: ABG Ionized Calcium 1.03 mmol/L (1.15-1.35)
[2017-01-24 12:52] LABS: ABG PCO2 52 mmHg (35-45); ABG PH 7.37 pH Units (7.32-7.45)
[2017-01-24 12:53] LABS: ABG HCO3 30 mEq/L (21-27); ABG PO2 459 mmHg (85-104)
[2017-01-24 12:54] LABS: ABG Base Excess 4.2 mEq/L (-2.0 to 3.0); ABG Glucose 83 mg/dL (60-95); ABG Oxygen Saturation 100 % (95-98); ABG TCO2 32 mEq/L (20-26)
[2017-01-24 12:55] LABS: ABG Ionized Calcium 1.17 mmol/L (1.15-1.35)
== END 2017-01-17 10:55 | disposition home or self-care (01) | DRG 236 ==
LOC: SAMDAY 07:02 → SUATTDRO 08:22 → ICNU 08:22 → 2NNU 01-13 14:28
PROVIDERS: ADMIT Thoracic Surgery (Cardiothoracic Vascular Surgery); ATTEND Internal Medicine